=== PATIENT | female | born 1965 | race Two or more races ===

== ENCOUNTER 2021-03-27 11:09 | Outpatient (REF) | payer MEDICAID, SELFPAY ==
--- NOTE | ~2021-03-27 | US_ITS ---
EXAMINATION: US RETROPERITONEAL LIMITED (RENAL ONLY) CLINICAL INFORMATION: Renal cyst. COMPARISON: Ultrasound abdomen 06/27/2019. Ultrasound renal 06/13/2019. TECHNIQUE: Real-time imaging of the kidneys. FINDINGS: RIGHT KIDNEY: 8.3 x 3.2 x 5.4 cm (SAG x AP x TRV). The kidney is normal in size, contour, and echogenicity. Renal cortical thickness is normal. There are 2 simple cysts in the upper pole measuring 1 x 0.6 x 0.9 cm 2.7 x 1.7 x 2.2 cm. There are slightly increased in size from most recent exam measuring 7 x 4 x 6 mm and 1.5 x 1.2 x 1.4 cm June 2019. No renal calculi or hydronephrosis. LEFT KIDNEY: 8.9 x 3.7 x 3.9 cm (SAG x AP x TRV). The kidney is normal in size, contour, and echogenicity. Renal cortical thickness is normal. No calculi or focal parenchymal lesions. No hydronephrosis. The liver is echogenic. US/US renal BI IMPRESSION: 2 small simple right renal cysts slightly increased in size from most recent exam June 2019. Normal left kidney. .
== END 2021-03-27 11:10 | disposition home or self-care (01) ==
LOC: HO.US 11:09
PROVIDERS: Visit Provider Family Medicine
DX: N28.89 Other specified disorders of kidney and ureter (principal)
CPT/HCPCS: 76775

== ENCOUNTER 2021-04-11 10:48 | Outpatient (REF) | payer MEDICAID, SELFPAY ==
--- NOTE | ~2021-04-11 | MM_ITS ---
EXAMINATION: MM SCREENING DIGITAL BREAST TOMOSYNTHESIS, BILATERAL CLINICAL INFORMATION: Screening. Asymptomatic. The lifetime risk of breast cancer based on the Tyrer-Cuzick Model is 5%. COMPARISON: Mammography: 06/15/2018, 03/13/2017, 12/26/2015 TECHNIQUE: Digital breast tomosynthesis is performed in both the craniocaudal and mediolateral oblique views along with computer-aided detection (CAD). Synthesized 2D images are generated from the tomosynthesis. Additional right MLO view is provided. FINDINGS: The breasts are almost entirely fatty (ACR BI-RADS breast composition Category a). There are no significant masses, abnormal calcifications, or other abnormalities. Background stromal densities are stable. The skin contours are smooth. MM/MM tomosynthesis screening BI IMPRESSION: No mammographic evidence of malignancy. ASSESSMENT: BI-RADS 1: Negative RECOMMENDATION: Routine annual mammography screening. This patient's information was entered into a reminder system with a target due date for their next mammogram.
== END 2021-04-11 10:49 | disposition home or self-care (01) ==
LOC: HO.MAMMO 10:48
PROVIDERS: Visit Provider Family Medicine
DX: Z12.31 Encounter for screening mammogram for malignant neoplasm of breast (principal)
CPT/HCPCS: 77063; 77067

== ENCOUNTER 2021-08-08 11:46 | Emergency (ER) | payer MEDICAID, SELFPAY ==
--- NOTE | ~2021-08-08 | XR_ITS ---
EXAMINATION: XR CHEST CLINICAL INFORMATION: Chest pain COMPARISON: August 31, 2019 TECHNIQUE: AP portable view of the chest was obtained. FINDINGS: No significant abnormality is noted involving the heart, lungs, mediastinum, bony thorax or soft tissues. XR/XR chest 1V IMPRESSION: No acute disease.
--- NOTE | ~2021-08-08 | US_ITS ---
EXAMINATION: US VENOUS ULTRASOUND WITH DOPPLER LOWER EXTREMITY, RIGHT CLINICAL INFORMATION: Edema and pain. COMPARISON: Right lower extremity ultrasound dated from 08/31/2019. TECHNIQUE: Ultrasound of the deep veins is performed from the hip to the calf with compression sonography and color and pulse Doppler assessment. Spectral analysis with color-flow imaging is performed. FINDINGS: There is normal venous compression and respiratory variation and augmented flow. The visualized common femoral vein, superficial femoral vein, profunda femoral vein, popliteal vein, and the trifurcation region shows no evidence of deep venous thrombosis. There is no significant popliteal fossa cyst. If the patient's symptoms persist, followup ultrasound in 5 days 7 days might be of value to exclude proximal propagation from a non-visualized calf vein. US/US venous duplex LE RT IMPRESSION: No DVT demonstrated in the right lower extremity.
[2021-08-08 12:43] VITALS: BP 146/86; PULSE 84; RESP 16; TEMP 36.6; O2SAT 100; BMI 41.3
--- NOTE | 2021-08-08 12:48 | ECG_ITS ---
Test Reason : CHEST PAIN Blood Pressure : / mmHG Vent. Rate : 078 BPM Atrial Rate : 078 BPM P-R Int : 150 ms QRS Dur : 078 ms QT Int : 372 ms P-R-T Axes : 035 040 021 degrees QTc Int : 424 ms Normal sinus rhythm Normal ECG When compared with ECG of 31-AUG-2019 10:28, No significant change was found Referred By: Generic ED Physician Electronically Signed By:ZAC SUE MD
--- NOTE | 2021-08-08 16:33 | ED.GENADULT ---
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 Right lower extremities pain and swelling started about 3 days ago, symptoms are constant, no alleviating factor, no worsening Factor, associated with swelling in that leg, no similar presentation in the past. Patient also complaining of right-sided neck and right shoulder pain started 3 days ago, radiates down to the mid chest, pain is constant, worsening with moving of the right upper extremities, nothing relieving the pain, no other associated symptoms. Related Data Allergies Allergy/AdvReac Type Severity Reaction Status Date / Time octopus [OCTOPUS] Allergy Unknown UNKNOWN Verified 08/08/21 12:27 YUCCA Allergy Unknown UNKNOWN Uncoded 06/07/20 19:03 Review of Systems Review of Systems: All other systems are reviewed and are negative Constitutional: Reports as per HPI and Reports no additional constitutional complaints Eyes: Reports as per HPI and Reports no additional eye complaints Reports system reviewed and no additional complaints, except as documented Cardiovascular: Reports as per HPI and Reports no additional cardiovascular complaints Respiratory: Reports as per HPI and Reports no additional respiratory complaints Gastrointestinal: Reports as per HPI and Reports no additional gastrointestinal complaints Genitourinary: Reports no additional female genitourinary complaints Musculoskeletal: Reports no additional musculoskeletal complaints Skin/Breast: Reports system reviewed and no additional complaints, except as docu Psychiatric: Reports no additional psychiatric complaints Endocrine: Reports no additional endocrine complaints Hematologic/Lymphatic: Reports no additional hematologic/lymphatic complaints Allergic/Immunologic: Reports no additional allergic/immunologic complaints Reports system reviewed and no additional complaints, except as documented and Reports Abnormal speech present [facility] Past Medical History Medical History HTN (hypertension) Surgical History H/O partial resection of colon H/O ventral hernia repair History of carpal tunnel release History of section History of hysterectomy Social History Social History Alcohol intake: unknown Patient Tobacco Use Status: Current someday Tobacco user Use of substances other than those prescribed or required for medical reasons: Unknown Advance Directives: No Advance Directives Information Provided: No Physical Exam Vital Signs: Vital Signs: Last Vital Signs Temp 97.9 F 08/08/21 12:43 Pulse 84 08/08/21 12:43 Resp 16 08/08/21 12:43 BP 146/86 H 08/08/21 12:43 Pulse Ox 100 08/08/21 12:43 Body Mass Index 41.3 Vital signs have been reviewed as appeared to be correct. Blood pressure normal. Heart rate normal. Respiration rate normal. Temperature normal. Oxygen saturation normal. Appearance: Alert. Oriented X3. No acute distress. Head: Normal external exam. Normocephalic. Atraumatic. No [place] signs noted. No raccoon eyes noted Eyes: PERRLA. EOMI. Conjunctiva and sclera normal. Eyelids normal. ENT: TM's Normal. Pharynx normal. Uvula midline. Moist mucous membranes. No trismus noted. No drooling noted. No muffled voice noted. Neck: Normal inspection. Neck supple. FROM. No adenopathy. Thyroid Normal. No meningeal signs. No neck mass noted. CVS: Normal heart rate and rhythm. Heart sound normal. No murmurs noted. Pulses normal throughout. Respiratory: No respiratory distress. Painless inspiration. Breath sounds normal. No wheezes/rales/rhonchi noted. Chest nontender. No accessory muscle usage noted or decreased air movement noted. Abdomen: Soft and nontender. Bowel sounds normal in all 4 quadrants. No distention noted. No organomegaly noted. No visible injury noted. Back: No CVA tenderness. Full range of motion noted. Skin: Skin warm and dry. Normal skin color. Normal skin turgor. No rashes/lesions/lacerations noted. Extremities: No lower extremity edema. Extremities exhibit normal range of motion. Extremities nontender. Neuro: Oriented X 3. Cranial nerve exam: II-XII are grossly intact No motor deficit. No sensory deficit. Reflexes normal. Course Course Course Narrative: Assessment and plan. 56-year-old female came in with multiple complain, patient is known to have a history of fibromyalgia, patient is complaining of chest pain and lower extremities pain, felt that the patient's symptoms is mostly related to cervical radiculopathy radiating down to the right upper extremities and mid chest. Lower extremity swelling D-dimer/ultrasound showing no DVT. Reevaluation(s) Reevaluation #1: Patient is about to be discharged, patient walked out before receiving her discharge instruction. Time: 18:33 Medical Decision Making Medical Records Medical records reviewed: Yes I reviewed the patient's medical records. Lab Data Lab results reviewed: Yes I reviewed the patient's lab results. Result diagrams: 08/08/21 16:56 08/08/21 16:56 Labs: Lab Results 08/08/21 08/08/21 08/08/21 Range/Units 16:56 16:56 16:56 WBC 7.8 (4.8-10.8) X10*3/uL RBC 4.57 (4.20-5.50) X10*6/uL Hgb 12.8 (12.0-16.0) g/dl Hct 39.9 (37.0-47.0) % MCV 87.3 (80.0-98.0) fL MCH 28.0 (27.0-33.0) pg MCHC 32.1 (31.0-35.0) g/dl RDW 14.9 (11.0-16.0) % Plt Count 213 (160-400) X10*3/uL MPV 9.9 (9.4-12.3) fL Immature Gran % (Auto) 0.1 (0.0-0.4) % Neut % (Auto) 45.4 (45-73) % Lymph % (Auto) 46.3 H (20-40) % [place] % (Auto) 5.5 (2-11) % Eos % (Auto) 2.3 (0-4) % Baso % (Auto) 0.4 (0-2) % Lymph # (Auto) 3.6 (1.2-4.9) X10*3/uL [place] # (Auto) 0.4 (0.1-1.2) X10*3/uL Eos # (Auto) 0.2 (0.0-0.4) X10*3/uL Baso # (Auto) 0.0 (0.0-0.2) X10*3/uL Abs Immat Gran (auto) 0.01 (0.00-0.03) X10*3/uL Absolute Neuts (auto) 3.5 (2.0-8.3) x10*3/uL Absolute Nucleated RBC 0.000 (0.0-0.012) X10*3/uL Nucleated RBC % (auto) 0.0 (0.0-0.2) /100WBC D-Dimer High Sensitivty NG/ML Sodium 138 (135-145) mmol/L Potassium 4.2 (3.3-5.1) mmol/L Chloride 110 H (96-108) mmol/L Carbon Dioxide 19 L (22-29) mmol/L Anion Gap 13 (12-20) BUN 9 (9-16) mg/dL Creatinine 0.82 (0.5-1.4) mg/dL Estim Creat Clear Calc 72.2 Estimated GFR > 60 Random Glucose 113 (60-115) mg/dL Calcium 8.4 (8.4-10.2) mg/dL Total Bilirubin 0.3 (0.0-1.0) mg/dL Direct Bilirubin < 0.2 (0.0-0.5) mg/dL AST 25 (5-31) U/L ALT 24 (0-31) U/L Alkaline Phosphatase 104 (39-117) U/L Troponin I High Sens < 3.5 (<3.5-17.0) ng/L B-Natriuretic Peptide (<100) pg/mL Total Protein 6.8 (6.5-8.0) g/dL Albumin 3.7 (3.5-5.0) g/dL Lipase 36 (8-78) U/L 08/08/21 08/08/21 Range/Units 16:56 16:56 WBC (4.8-10.8) X10*3/uL RBC (4.20-5.50) X10*6/uL Hgb (12.0-16.0) g/dl Hct (37.0-47.0) % MCV (80.0-98.0) fL MCH (27.0-33.0) pg MCHC (31.0-35.0) g/dl RDW (11.0-16.0) % Plt Count (160-400) X10*3/uL MPV (9.4-12.3) fL Immature Gran % (Auto) (0.0-0.4) % Neut % (Auto) (45-73) % Lymph % (Auto) (20-40) % [place] % (Auto) (2-11) % Eos % (Auto) (0-4) % Baso % (Auto) (0-2) % Lymph # (Auto) (1.2-4.9) X10*3/uL [place] # (Auto) (0.1-1.2) X10*3/uL Eos # (Auto) (0.0-0.4) X10*3/uL Baso # (Auto) (0.0-0.2) X10*3/uL Abs Immat Gran (auto) (0.00-0.03) X10*3/uL Absolute Neuts (auto) (2.0-8.3) x10*3/uL Absolute Nucleated RBC (0.0-0.012) X10*3/uL Nucleated RBC % (auto) (0.0-0.2) /100WBC D-Dimer High Sensitivty 200 NG/ML Sodium (135-145) mmol/L Potassium (3.3-5.1) mmol/L Chloride (96-108) mmol/L Carbon Dioxide (22-29) mmol/L Anion Gap (12-20) BUN (9-16) mg/dL Creatinine (0.5-1.4) mg/dL Estim Creat Clear Calc Estimated GFR Random Glucose (60-115) mg/dL Calcium (8.4-10.2) mg/dL Total Bilirubin (0.0-1.0) mg/dL Direct Bilirubin (0.0-0.5) mg/dL AST (5-31) U/L ALT (0-31) U/L Alkaline Phosphatase (39-117) U/L Troponin I High Sens (<3.5-17.0) ng/L B-Natriuretic Peptide 25 (<100) pg/mL Total Protein (6.5-8.0) g/dL Albumin (3.5-5.0) g/dL Lipase (8-78) U/L Imaging Data Chest x-ray: Radiologist's impression: No acute disease Right lower extremities ultrasound: Radiologist's impression: No DVT ECG Data Attestation: I personally reviewed and interpreted this ECG as follows: Interpretation: Normal sinus rhythm at 70 beats per minutes, normal axis deviation, normal intervals, no ST-T changes. Discharge Plan Discharge Clinical Impression: Fibromyalgia, Cervical radiculopathy Patient Disposition: Home, Self-Care Instructions: Cervical Radiculopathy (ED), Fibromyalgia (ED) Referrals: Lilo Trent DO [Primary Care Provider] - 2 days
[2021-08-08 17:00] LABS: MANUAL DIFF FLAG NO
[2021-08-08 17:03] LABS: Basophils Percent Auto 0.4 % (0-2); Eosinophils Absolute Auto 0.2 X10*3/uL (0.0-0.4); Eosinophils Percent Auto 2.3 % (0-4); Hematocrit 39.9 % (37.0-47.0); Hemoglobin 12.8 g/dl (12.0-16.0); Imm Gran Abs Auto 0.01 X10*3/uL (0.00-0.03); Imm Gran Pct Auto 0.1 % (0.0-0.4); Lymphocytes Absolute Auto 3.6 X10*3/uL (1.2-4.9); Lymphocytes Percent Auto 46.3 % (20-40); Mean Corpuscular HGB Conc 32.1 g/dl (31.0-35.0); Mean Corpuscular Volume 87.3 fL (80.0-98.0); Mean Platelet Volume 9.9 fL (9.4-12.3); Monocytes Absolute Auto 0.4 X10*3/uL (0.1-1.2); Monocytes Percent Auto 5.5 % (2-11); Neutrophils Absolute Auto 3.5 x10*3/uL (2.0-8.3); Neutrophils Percent Auto 45.4 % (45-73); Platelet Count 213 X10*3/uL (160-400); Red Blood Count 4.57 X10*6/uL (4.20-5.50); Red Cell Distribution Width 14.9 % (11.0-16.0); White Blood Count 7.8 X10*3/uL (4.8-10.8)
[2021-08-08 17:09] LABS: D Dimer High Sensitivity 200 NG/ML
[2021-08-08 17:29] LABS: Troponin-I High Sensitivity < 3.5 ng/L (<3.5-17.0)
[2021-08-08 17:30] LABS: Alanine Aminotransferase 24 U/L (0-31); Albumin Level 3.7 g/dL (3.5-5.0); Alkaline Phosphatase 104 U/L (39-117); Anion Gap 13 (12-20); Aspartate Amino Transferase 25 U/L (5-31); B Type Natriuretic Peptide 25 pg/mL (<100); Bilirubin Direct < 0.2 mg/dL (0.0-0.5); Bilirubin Total 0.3 mg/dL (0.0-1.0); Blood Urea Nitrogen 9 mg/dL (9-16); Calcium 8.4 mg/dL (8.4-10.2); Carbon Dioxide 19 mmol/L (22-29); Chloride 110 mmol/L (96-108); Creatinine Clr Calc Pharmacy 72.2; Estimated Glomerular Filt Rate > 60; Glucose Random 113 mg/dL (60-115); Lipase 36 U/L (8-78); Potassium 4.2 mmol/L (3.3-5.1); Sodium 138 mmol/L (135-145); Total Protein 6.8 g/dL (6.5-8.0)
[2021-08-08 18:13] LABS: Appearance Urine CLEAR; Color Urine YELLOW; Glucose Urine UA NEG (NEG); Leukocyte Esterase Urine NEG (NEG); Nitrite Urine NEG (NEG); Specific Gravity - Urine >= 1.030 (1.005-1.025); UACC Culture Trigger NO; Urine Blood TRACE (NEG); Urine Ketones NEG (NEG); Urine Protein NEG (NEG-TRACE)
[2021-08-08 18:23] VITALS: BP 140/80; PULSE 78; RESP 15; TEMP 36.8; O2SAT 97
--- NOTE | 2021-08-08 18:34 | PC.NURSE ---
Spoke to MD about the dispo on this patient which is ultimately to medicate for pain and discharge. However, prior to this,patient requested to leave. IV removed and pt left watching.
[2021-08-08 18:44] LABS: Bacteria Urine 1+ /LPF; Hyaline Casts Urine 0-2 /LPF; RBC Urine 0-2 /HPF (0); Squamous Epithelial Cell Urine 1+ /LPF; WBC Urine 0-2 /HPF (0-4)
== END 2021-08-08 18:38 | disposition home or self-care (01) ==
PROVIDERS: Emergency Provider Emergency Medicine; PCP Family Medicine
DX: M79.7 Fibromyalgia (principal); M54.12 Radiculopathy, cervical region; M79.662 Pain in left lower leg; M79.661 Pain in right lower leg; M79.89 Other specified soft tissue disorders; I10 Essential (primary) hypertension; E78.00 Pure hypercholesterolemia, unspecified; F17.200 Nicotine dependence, unspecified, uncomplicated
CPT/HCPCS: 36415; 71045; 80048; 80076; 81001; 83690; 83880; 84484; 85025; 85379; 93005; 93971; 99284

== ENCOUNTER 2022-01-29 15:12 | Outpatient (REF) | payer MEDICAID, SELFPAY ==
--- NOTE | ~2022-01-29 | XR_ITS ---
EXAMINATION: XR FEMUR, LEFT XR KNEE, LEFT XR TIBIA, LEFT CLINICAL INFORMATION: Pain COMPARISON: None TECHNIQUE: AP and lateral views of the left femur, 3 views of the left knee, and AP and lateral views of the left tibia and fibula. FINDINGS: AP and lateral views of the left femur do not demonstrate any evidence of acute fracture or dislocation. Hip joint space appears maintained. There is some spurring about the greater trochanter. No destructive bony lesion identified. Three views of the left knee do not demonstrate any evidence of acute fracture or dislocation. Joint spaces are maintained. Small spur site of insertion of the quadriceps tendon on the patella is seen. No left knee effusion is seen. AP and lateral views of the left tibia and fibula do not demonstrate any evidence of acute fracture or dislocation. No destructive bony lesion identified. There is an Achilles calcaneal spur present. XR/XR knee LT 3V IMPRESSION: No evidence of significant bony abnormality of the left femur, left knee, or left tibia and fibula.
--- NOTE | ~2022-01-29 | XR_ITS ---
EXAMINATION: XR FEMUR, LEFT XR KNEE, LEFT XR TIBIA, LEFT CLINICAL INFORMATION: Pain COMPARISON: None TECHNIQUE: AP and lateral views of the left femur, 3 views of the left knee, and AP and lateral views of the left tibia and fibula. FINDINGS: AP and lateral views of the left femur do not demonstrate any evidence of acute fracture or dislocation. Hip joint space appears maintained. There is some spurring about the greater trochanter. No destructive bony lesion identified. Three views of the left knee do not demonstrate any evidence of acute fracture or dislocation. Joint spaces are maintained. Small spur site of insertion of the quadriceps tendon on the patella is seen. No left knee effusion is seen. AP and lateral views of the left tibia and fibula do not demonstrate any evidence of acute fracture or dislocation. No destructive bony lesion identified. There is an Achilles calcaneal spur present. XR/XR femur LT 1V IMPRESSION: No evidence of significant bony abnormality of the left femur, left knee, or left tibia and fibula.
--- NOTE | ~2022-01-29 | XR_ITS ---
EXAMINATION: XR FEMUR, LEFT XR KNEE, LEFT XR TIBIA, LEFT CLINICAL INFORMATION: Pain COMPARISON: None TECHNIQUE: AP and lateral views of the left femur, 3 views of the left knee, and AP and lateral views of the left tibia and fibula. FINDINGS: AP and lateral views of the left femur do not demonstrate any evidence of acute fracture or dislocation. Hip joint space appears maintained. There is some spurring about the greater trochanter. No destructive bony lesion identified. Three views of the left knee do not demonstrate any evidence of acute fracture or dislocation. Joint spaces are maintained. Small spur site of insertion of the quadriceps tendon on the patella is seen. No left knee effusion is seen. AP and lateral views of the left tibia and fibula do not demonstrate any evidence of acute fracture or dislocation. No destructive bony lesion identified. There is an Achilles calcaneal spur present. XR/XR tibia fibula LT 2V IMPRESSION: No evidence of significant bony abnormality of the left femur, left knee, or left tibia and fibula.
--- NOTE | ~2022-01-29 | US_ITS ---
EXAMINATION: US VENOUS ULTRASOUND WITH DOPPLER LOWER EXTREMITY, BILATERAL CLINICAL INFORMATION: Bilateral pain and swelling COMPARISON: August 08, 2021 and August 31, 2019 TECHNIQUE: Ultrasound of the deep veins is performed from the hip to the calf with compression sonography and color and pulse Doppler assessment. Spectral analysis with color-flow imaging is performed. FINDINGS: RIGHT: There is normal venous compression and respiratory variation and augmented flow. The visualized common femoral vein, superficial femoral vein, profunda femoral vein, popliteal vein, and the trifurcation region shows no evidence of deep venous thrombosis. There is no significant popliteal fossa cyst. No popliteal artery aneurysm. LEFT: There is normal venous compression and respiratory variation and augmented flow. The visualized common femoral vein, superficial femoral vein, profunda femoral vein, popliteal vein, and the trifurcation region shows no evidence of deep venous thrombosis. There is no significant popliteal fossa cyst. No popliteal artery aneurysm. US/US venous duplex LE BI IMPRESSION: No acute DVT demonstrated in the bilateral lower extremity.
== END 2022-01-29 15:13 | disposition home or self-care (01) ==
LOC: HO.US 15:12
PROVIDERS: PCP Family Medicine; Visit Provider Family Medicine
DX: M79.604 Pain in right leg (principal); M79.605 Pain in left leg; M25.562 Pain in left knee
CPT/HCPCS: 73551; 73562; 73590; 93970

== ENCOUNTER 2023-12-22 10:57 | Outpatient (REF) | payer MEDICAID, SELFPAY ==
--- NOTE | ~2023-12-22 | XR_ITS ---
EXAMINATION: XR CLAVICLE, RIGHT XR SHOULDER, RIGHT XR HUMERUS, RIGHT CLINICAL INFORMATION: Pain status post fall COMPARISON: None available. TECHNIQUE: 2 views of the right clavicle 4 views of the right shoulder 3 views the right humerus FINDINGS: No acute visible fracture or dislocation. Degenerative arthropathy of the glenohumeral and acromioclavicular joints with joint space alignment otherwise maintained. Soft tissues are unremarkable. Visualized portions of the chest are unremarkable. XR/XR humerus RT IMPRESSION: 1. No acute visible fracture or dislocation. 2. Degenerative arthropathy of the glenohumeral and acromioclavicular joints.
--- NOTE | ~2023-12-22 | XR_ITS ---
EXAMINATION: XR HIP, RIGHT CLINICAL INFORMATION: Pain COMPARISON: None available. TECHNIQUE: Two views of the right hip. FINDINGS: Acute visible fracture dislocation. Mild arthritic changes of the right femoral acetabular joint. Joint space alignment otherwise maintained. Soft tissues are unremarkable. Pelvic phleboliths are noted. XR/XR hip RT min 2V IMPRESSION: 1. No acute visible fracture dislocation. 2. Mild arthritic changes of the right femoral acetabular joint.
--- NOTE | ~2023-12-22 | XR_ITS ---
EXAMINATION: XR KNEE, RIGHT CLINICAL INFORMATION: Injury COMPARISON: None available. TECHNIQUE: Four views of the right knee. FINDINGS: No acute visible fracture dislocation. Mild multicompartment arthritic changes. Mild narrowing medial femorotibial compartment. Joint space alignment are otherwise maintained. No large knee joint effusion. Soft tissues are unremarkable. XR/XR knee RT 4V IMPRESSION: 1. No acute visible fracture dislocation. 2. Mild multicompartment arthritic changes.
--- NOTE | ~2023-12-22 | XR_ITS ---
EXAMINATION: XR RIBS, LEFT CLINICAL INFORMATION: Injury COMPARISON: Chest radiograph from 08/08/2021 TECHNIQUE: 4 views of the left ribs were obtained. FINDINGS: Chronic interstitial lung markings. Biapical pleural parenchymal lung scarring. No pneumothorax. Trachea is midline. Cardiac mediastinal silhouette is stable. No large pleural effusion. Soft tissues are unremarkable. Degenerative changes of the thoracolumbar spine. No acute visualized left-sided rib fractures. XR/XR ribs LT min 3V w CXR1V IMPRESSION: 1. Chronic interstitial lung markings. 2. Biapical pleural parenchymal lung scarring. 3. No acute visualized left-sided rib fractures.
--- NOTE | ~2023-12-22 | XR_ITS ---
EXAMINATION: XR CLAVICLE, RIGHT XR SHOULDER, RIGHT XR HUMERUS, RIGHT CLINICAL INFORMATION: Pain status post fall COMPARISON: None available. TECHNIQUE: 2 views of the right clavicle 4 views of the right shoulder 3 views the right humerus FINDINGS: No acute visible fracture or dislocation. Degenerative arthropathy of the glenohumeral and acromioclavicular joints with joint space alignment otherwise maintained. Soft tissues are unremarkable. Visualized portions of the chest are unremarkable. XR/XR shoulder RT min 2V IMPRESSION: 1. No acute visible fracture or dislocation. 2. Degenerative arthropathy of the glenohumeral and acromioclavicular joints.
--- NOTE | ~2023-12-22 | XR_ITS ---
EXAMINATION: XR CLAVICLE, RIGHT XR SHOULDER, RIGHT XR HUMERUS, RIGHT CLINICAL INFORMATION: Pain status post fall COMPARISON: None available. TECHNIQUE: 2 views of the right clavicle 4 views of the right shoulder 3 views the right humerus FINDINGS: No acute visible fracture or dislocation. Degenerative arthropathy of the glenohumeral and acromioclavicular joints with joint space alignment otherwise maintained. Soft tissues are unremarkable. Visualized portions of the chest are unremarkable. XR/XR clavicle RT IMPRESSION: 1. No acute visible fracture or dislocation. 2. Degenerative arthropathy of the glenohumeral and acromioclavicular joints.
== END 2023-12-22 10:58 | disposition home or self-care (01) ==
LOC: HO.HHCX 10:57
PROVIDERS: Visit Provider Internal Medicine
DX: R07.81 Pleurodynia (principal); M79.601 Pain in right arm; M25.511 Pain in right shoulder; M25.561 Pain in right knee; M25.551 Pain in right hip
CPT/HCPCS: 71101; 73000; 73030; 73060; 73502; 73564

== ENCOUNTER 2024-03-15 11:38 | Outpatient (REF) | payer MEDICAID, SELFPAY | END 2024-03-15 11:39 | disposition home or self-care (01) | LOC: HO.MAMMO 11:38 | PROVIDERS: PCP Family Medicine; Visit Provider Family Medicine | DX: Z12.31 Encounter for screening mammogram for malignant neoplasm of breast (principal) | CPT/HCPCS: 77063; 77067 ==

== ENCOUNTER → 2024-03-15 12:45 | Outpatient (BNV) | payer MEDICAID, SELFPAY | PROVIDERS: PCP Family Medicine; Visit Provider Radiology Diagnostic Radiology | DX: Z12.31 Encounter for screening mammogram for malignant neoplasm of breast (principal) | CPT/HCPCS: 77063; 77067 ==

== ENCOUNTER 2025-05-05 12:15 | Outpatient (REF) | payer MEDICAID, SELFPAY ==
--- NOTE | ~2025-05-05 | XR_ITS ---
EXAMINATION: XR LUMBOSACRAL SPINE CLINICAL INFORMATION: worsening neck and back pain s/p fall COMPARISON: August 11, 2016. TECHNIQUE: AP and lateral views FINDINGS: Small marginal osteophyte formation and mild endplate sclerosis at the vertebral bodies of the lumbar spine. Larger marginal osteophyte formation and endplate sclerosis and the lower thoracic spine. No acute cortical disruption or malalignment. No lytic or blastic lesions. Metallic coils overlapping the lumbar spine and lower pelvis likely from mesh procedure. Vascular desiccation's, aorta. Vascular clips in the right upper quadrant abdomen and sutures in the right hemiabdomen. XR/XR lumbar spine 2-3V IMPRESSION: Multilevel thoracolumbar spondylosis without acute fracture or listhesis. Overall worsening in the lower thoracic spine. Electronically signed by: Avi Solis MD 05/05/2025 01:29 PM EDT
--- NOTE | ~2025-05-05 | XR_ITS ---
EXAMINATION: XR CERVICAL SPINE CLINICAL INFORMATION: PAIN COMPARISON: Correlated to MRI dated October 09, 2017. TECHNIQUE: AP lateral and atlantoodontoid views. FINDINGS: Craniocervical junction is intact. Small marginal osteophyte formation C5-6 and C6-7 levels. No acute cortical disruption or malalignment. No lytic or blastic lesions. Upper airway is patent. Edentulous. XR/XR cervical spine 3V IMPRESSION: Mild spondylosis C5-6 and C6-7. Electronically signed by: Avi Solis MD 05/05/2025 01:28 PM EDT
--- NOTE | ~2025-05-05 | XR_ITS ---
EXAMINATION: XR THORACIC SPINE CLINICAL INFORMATION: PAIN COMPARISON: September 19, 2016 TECHNIQUE: AP and lateral views. FINDINGS: S-shaped curvature of the thoracic spine with a levoconvex curvature apex at T5. Multilevel marginal osteophyte formation and syndesmophyte formation with endplate sclerosis and decreased intervertebral disc height. No acute cortical disruption or malalignment. Metallic coils likely from a mesh procedure in the abdomen. XR/XR thoracic spine 2V IMPRESSION: Multilevel spondylosis and levoconvex scoliosis of the upper thoracic spine. Overall worsening since prior exam. Electronically signed by: Avi Solis MD 05/05/2025 01:27 PM EDT
--- NOTE | ~2025-05-05 | XR_ITS ---
EXAMINATION: XR KNEE 4 OR MORE VIEWS LEFT HISTORY: worsening knee pain and swelling s/p fall COMPARISON: Comparison is made with the prior examination dated 01/29/2022. FINDINGS: Five views of the left knee are submitted. Osseous mineralization is normal. There is no fracture or dislocation. The joint spaces are preserved. The soft tissues are unremarkable. There is no joint effusion. XR/XR knee LT 4V IMPRESSION: Unremarkable examination of the left knee. Electronically signed by: Anibal Brasher MD 05/05/2025 01:25 PM EDT
--- OUTSIDE RECORDS SUMMARY | 2025-05-05 12:17 | XMS_ITS | Encounter Summary ---
Author Organization [employer] Address [address] [place] [address] Care Team Providers Care Aquatic Centre Manager Name Role Phone Lucy Trentfer Primary Care Provider + [phone] Reason for Visit * Reason Comments Med Refill Encounter Details Date Type Department Care Team ([facility] st Contact Info) Description 09/12/2024 Refill [facility] [address] [place], [place] [phone] Monique Ng MD [address] [place] [address] Major depression, recurrent, chronic (CMS/HCC) Social History Tobacco Use Types Packs/Day Years Used Date Smoking Tobacco: Every Day Cigarettes Passive Smoke Exposure: Current Housing Stability Answer Date Recorded What is your housing situation today? I have teriwilly henning 12/29/[address] you li ve. Do you have problems with any of the following? None of the above 12/29/2023 Food Insecurity Answer Date Recorded Within the past 12 months, y ou worried that your food would run out before you got money to buy more: Sometimes True 2023 Within the past 12 months,th e food you bought just didn't last and you didn't have enough money to get more: Sometimes True 12/29/2023 Transportation Answer Date Recorded In the past 12 months, has l ack of transportation kept you from medical appts, meetings, work or from getting things needed for daily living? Yes, it has kept me from non-medical meetings, work, or getting things that I need 12/29/2023 Utilities Answer Date Recorded In the past 12 months, has t he electric, gas, oil or water company threatened to shut off services in your home? No 12/29/2023 Comments Unknown Sex and Gender Information Value Date Recorded Sex Assigned at Female 07/21/2022 10:29 AM EDT Legal Sex Female 10:29 AM EDT Gender Identity Female 07/21/2022 10:29 AM EDT Sexual Orientation Straight 07/21/2022 10 :29 AM EDT documented as of this encounter Plan of Treatment Not on file documented as of this encounter Visit Diagnoses Diagnosis Major depression, recurrent, chronic (CMS/HCC) documented in this encounter Care Teams Aquatic Centre Manager Relationship Specialty Start Date End Date Lilo Trent DO [address] [place] [id number] PCP - General Family Medicine 12/18/15 documented as of this encounter
[2025-05-05 13:47] LABS: Hematocrit 39.9 % (37.0-47.0); Hemoglobin 12.8 g/dl (12.0-16.0); Mean Corpuscular HGB Conc 32.1 g/dl (31.0-35.0); Mean Corpuscular Hemoglobin 28.5 pg (27.0-33.0); Mean Corpuscular Volume 88.9 fL (80.0-98.0); NRBC Abs Auto 0.000 X10*3/uL (0.0-0.012); NRBC Pct Auto 0.0 /100WBC (0.0-0.2); Platelet Count 229 X10*3/uL (160-400); Red Blood Count 4.49 X10*6/uL (4.20-5.50); White Blood Count 7.9 X10*3/uL (4.8-10.8)
[2025-05-05 13:52] LABS: Hemoglobin A1C 125.4726 umol/L; Total Hemoglobin (HGBA1C) 3337.7711 umol/L
[2025-05-05 13:55] LABS: Alanine Aminotransferase 24 U/L (0-31); Albumin Level 4.0 g/dL (3.5-5.0); Alkaline Phosphatase 107 U/L (39-117); Anion Gap 12 (12-20); Aspartate Amino Transferase 30 U/L (5-31); Blood Urea Nitrogen 12 mg/dL (9-16); Calcium 8.9 mg/dL (8.4-10.2); Carbon Dioxide 28 mmol/L (22-29); Chloride 107 mmol/L (96-108); Cholesterol 119 mg/dL (<200); Estimated Glomerular Filt Rate > 60; HDL Cholesterol 48 mg/dL (>40); Potassium 3.5 mmol/L (3.3-5.1); Sodium 143 mmol/L (135-145); Total Protein 7.0 g/dL (6.5-8.0); Triglycerides 78 mg/dL (<150)
[2025-05-05 14:10] LABS: HBS Num1 2.00 mIU/mL (0-7.99); HBc Num1 0.04 S/CO (0.00-0.79); HBsAGNum1 0.47 S/CO (0.00-0.99); HIV Num 1 0.04 S/CO (0.00-0.99); Hepatitis B Surface Antigen Negative (Negative); ~HepC Num1 0.07 S/CO (0.00-0.79); ~Hepatitis B Surface Antibody NONREACTIVE (Nonreactive); ~Hepatitis C Antibody Nonreactive (Nonreactive)
[2025-05-05 14:13] LABS: ~Hepatitis A Antibody IgG 0.27 S/CO (0.00-0.99)
[2025-05-05 14:14] LABS: Free T4 (Free Thyroxine) 1.07 ng/dL (0.71-1.85); Thyroid Stimulating Hormone 1.10 uIU/mL (0.32-4.0)
[2025-05-05 14:36] LABS: Microalbum/Creatinine Ratio Ur 7.6 ug/mg cr (<30)
== END 2025-05-05 12:16 | disposition home or self-care (01) ==
LOC: HO.HHCX 12:15
PROVIDERS: PCP Family Medicine; Visit Provider Family Medicine
DX: Z11.3 Encounter for screening for infections with a predominantly sexual mode of transmission (principal); Z11.59 Encounter for screening for other viral diseases; Z11.4 Encounter for screening for human immunodeficiency virus [HIV]; K76.0 Fatty (change of) liver, not elsewhere classified; G89.29 Other chronic pain; M54.2 Cervicalgia; M54.9 Dorsalgia, unspecified; M25.562 Pain in left knee; I10 Essential (primary) hypertension; M25.462 Effusion, left knee
CPT/HCPCS: 36415; 72040; 72070; 72100; 73564; 80048; 80061; 80076; 82043; 82105; 82306; 82570; 83036; 84439; 84443; 85027; 86592; 86704; 86706; 86708; 86803; 87340; 87389

== ENCOUNTER → 2025-05-05 12:42 | Outpatient (BNV) | payer MEDICAID, SELFPAY | PROVIDERS: PCP Family Medicine; Visit Provider Radiology Diagnostic Radiology | DX: M25.562 Pain in left knee (principal); M47.816 Spondylosis without myelopathy or radiculopathy, lumbar region; M50.122 Cervical disc disorder at C5-C6 level with radiculopathy; M47.892 Other spondylosis, cervical region | CPT/HCPCS: 72040; 72070; 72100; 73564 ==

== ENCOUNTER 2025-07-24 16:33 | Emergency (ER) | payer MEDICAID, SELFPAY ==
--- NOTE | ~2025-07-24 | CT_ITS ---
CLINICAL HISTORY: trauma , pain right mid back to lumbar --- Additional Notes or Special Instructions: Patient very poor historian also complaining of right upper CT abdomen and pelvis without contrast Comparison: None provided Findings: No acute finding in the partially imaged lung bases. No intraperitoneal free fluid or free air. Normal stomach and small bowel. No significant abnormality of the colon. Ventral abdominal wall mesh hernia repair changes. Sigmoid and cecal anastomotic sutures noted. Small gallstone. Otherwise normal gallbladder, bile ducts, liver, spleen, pancreas, and adrenal gland in the absence of IV contrast. Right renal 3 cm simple cyst. Otherwise normal kidneys, ureters, and urinary bladder. No aortic aneurysm. Bones intact. No acute fracture or suspicious bone lesion. Mild lower lumbar spine and hip degenerative changes. IMPRESSION: No acute traumatic finding. [id number] colonic fecal loading with distended proximal transverse colon and hepatic flexure colon. This could potentially be a cause of acute right upper quadrant abdominal pain and may be a source of referred back pain as well. This document has been electronically signed by: Wade Knapp MD on 07/24/2025 22:57:08
--- OUTSIDE RECORDS SUMMARY | 2025-07-24 15:40 | XMS_ITS | Encounter Summary ---
Author Organization [employer] Address [address] [place] [address] Care Team Providers Care Choral Director Name Role Phone Twan Lilo Primary Care Provider [phone] Encounter Details Date Type Department Care Team ([facility] st Contact Info) Description 07/24/2025 3:40 PM EST Office Visit [facility] [address], [place] [id number] Monique Ng MD [address], [place] [phone] Pain of upper abdomen (Primary Dx) Social History Tobacco Use Types Packs/Day Years Used Date Smoking Tobacco: Every Day Cigarettes Passive Smoke Exposure: Current Alcohol Use Standard Drinks/Week Comments Defer 0 (1 standard drink = 0.6 oz pur e alcohol) Depression Answer Date Recorded Patient Health Questionnaire-9 Score 16 05/05/2025 Patient Health Questionnaire-9 Score 16 05/05/2025 Last PHQ-9: Questionnaire Data Not on file 0 05/05/2025 Housing Stability Answer Date Recorded What is your housing situation today? I have teri henning 05/05/[address] you li ve. Do you have problems with any of the following? None of the above 05/05/2025 Food Insecurity Answer Date Recorded Within the past 12 months, y ou worried that your food would run out before you got money to buy more: Often true 05/05/2025 Within the past 12 months,th e food you bought just didn't last and you didn't have enough money to get more: Often true Transportation Answer Date Recorded In the past 12 months, has l ack of transportation kept you from medical appts, meetings, work or from getting things needed for daily living? Yes, it has kept me from medical appointments or getting medications. 05/05/2025 Utilities Answer Date Recorded In the past 12 months, has t he electric, gas, oil or water company threatened to shut off services in your home? No 05/05/2025 Depression Answer Date Recorded Patient Health Questionnaire-2 Score 4 05/05/2025 Internet Access Answer Date Recorded Internet Access Q1 Yes 05/05/2025 Internet Access Q2 Not on file 05/05/2025 Comments No Sex and Gender Information Value Date Recorded Sex Assigned at Female 07/21/2022 10:29 AM EDT Legal Sex Female 10:29 AM EDT Gender Identity Female 07/21/2022 10:29 AM EDT Sexual Orientation Straight 07/21/2022 10 :29 AM EDT documented as of this encounter Last Filed Vital Signs Vital Sign Reading Time Taken Comments Blood Pressure 144/82 07/24/2025 3:42 PM EST Pulse 92 07/24/2025 3:42 PM EST Temperature 36.6 C (97.8 F) 07/24/2025 3:42 PM EST Respiratory Rate 20 07/24/2025 3:42 PM EST Oxygen Saturation - - Inhaled Oxygen Concentration - - Weight 83.8 kg (184 lb 12.8 oz) 07/24/2025 3:42 PM EST Height 147.3 cm (4' 10 ) 07/24/2025 3:42 PM EST Body Mass Index 38.62 07/24/2025 3:42 PM EST documented in this encounter Progress Notes * Monique Ng MD - 07/24/2025 3:40 PM EST SUBJECTIVE: Zoë Cook is a 60 y.o. year old female who presents for [facility]/abdominal pain. Denies recent illness, injury, or hospitalization. Patient is here with Terrell, her BF. Acute Concerns: Low Back Pain and Sciatica Patient developed pain nn the back radiating to the legs and right flank 3d ago. Described pain as discomfort extending forward and to the sides as well as right leg Applied heat for relief with no improvement of sxs. No urinary sxs, cosntipation, fever or diarrhea Social History Social History Narrative Not on file Problem List[1] Family History[2] Review of Systems Constitutional: Negative for chills, fatigue and fever. HENT: Negative for congestion, ear pain, nosebleeds, rhinorrhea, sinus pressure, sore throat and trouble swallowing. Eyes: Negative for pain and discharge. Respiratory: Negative for cough, chest tightness and shortness of breath. Cardiovascular: Negative for chest pain, palpitations and leg swelling. Gastrointestinal: Positive for abdominal pain. Negative for blood in stool, constipation, diarrhea and nausea. Endocrine: Negative for polydipsia and polyuria. Genitourinary: Negative for dysuria, frequency, genital sores, pelvic pain and vaginal discharge. Musculoskeletal: Negative for back pain and neck pain. Skin: Negative for rash. Allergic/Immunologic: Negative for environmental allergies. Neurological: Negative for dizziness, seizures, weakness, light-headedness and headaches. Hematological: Negative for adenopathy. Psychiatric/Behavioral: Negative for agitation, behavioral problems, self-injury and suicidal ideas. OBJECTIVE: Vitals: 07/24/25 1542 BP: (!) 144/82 Pulse: 92 Resp: 20 Temp: 97.8 ??F (36.6 ??C) Physical Exam HENT: Right Ear: Tympanic membrane and ear canal normal. Left Ear: Tympanic membrane and ear canal normal. Mouth/Throat: Mouth: Mucous membranes are moist. Pharynx: No oropharyngeal exudate or posterior oropharyngeal erythema. Eyes: Pupils: Pupils are equal, round, and reactive to light. Cardiovascular: Rate and Rhythm: Regular rhythm. Pulses: Normal pulses. Heart sounds: Normal heart sounds. No murmur heard. Pulmonary: Breath sounds: Normal breath sounds. Abdominal: General: Bowel sounds are normal. Palpations: Abdomen is soft. Tenderness: There is abdominal tenderness (3+) in the right upper quadrant and periumbilical area. There is right CVA tenderness, guarding and rebound. Comments: Right flank and mid abd Musculoskeletal: General: Normal range of motion. Cervical back: Neck supple. Skin: General: Skin is warm. Neurological: General: No focal deficit present. Mental Status: She is alert and oriented to person, place, and time. Psychiatric: Mood and Affect: Mood normal. Behavior: Behavior normal. Problem List Items Addressed This Visit Pain of upper abdomen - Primary - Low back pain with radiation to the legs, possible sciatica discussed. However given significant abdominal pain., I referred her to ED to ro urolithiasis/renal colic - Sent in an Uber for transportation to emergency services given that she's hemodynamically stable,willing to go to [facility] ED but came in public transportation. - KAL millan PCP This note was drafted using Ambient (AI) technology. The patient/patient's guardian has been informed and has consented to the use of this technology: Yes Follow Up: Medications Ordered Prior to Encounter[3] [1] Patient Active Problem List Diagnosis Anxiety Essential hypertension Chronic gastroesophageal reflux disease Mild intermittent asthma Obesity Major depression, recurrent, chronic (CMS/HCC) Vitamin D deficiency Vitamin B12 deficiency Fibromyalgia Fatty liver Chronic diarrhea Allergic rhinitis Renal cyst Hyperlipidemia Chronic low back pain Post traumatic stress disorder Acute pain of right shoulder Pain of right upper extremity Pain of right hip Rib pain Chronic pain of both knees Healthcare maintenance Complete edentulism Atrophic maxilla Pain of upper abdomen [2] No family history on file. [3] Current Outpatient Medications on File Prior to Visit Medication Sig Dispense Refill Acetaminophen Extra Strength 500 MG tablet TAKE 1 TABLET BY MOUTH EVERY 6 HOURS NEEDED FOR PAIN OR FEVER 100 tablet 2 amLODIPine (Norvasc) 5 MG tablet Take 1 tablet (5 mg) by mouth at bedtime. 90 tablet 1 Arnuity Ellipta 50 MCG/ACT inhaler INHALE 1 PUFF BY MOUTH EVERY DAY AT THE SAME TIME RINSE MOUTH AFTER USING 30 each 5 Aspirin Low Dose 81 MG EC tablet TAKE 1 TABLET BY MOUTH AT BEDTIME 90 tablet 1 atorvastatin (Lipitor) 10 MG tablet TAKE 1 TABLET BY MOUTH AT BEDTIME 90 tablet 1 atorvastatin (Lipitor) 10 MG tablet Take 1 tablet (10 mg) by mouth at bedtime. 90 tablet 1 baclofen (Lioresal) 10 MG tablet TAKE 1 TABLET BY MOUTH THREE TIMES DAILY IN THE MORNING, AT NOON, AND AT BEDTIME NEEDED FOR MUSCLE SPASMS 60 tablet 3 buPROPion XL (Wellbutrin XL) 300 MG 24 hr tablet TAKE 1 TABLET BY MOUTH EVERY MORNING DO NOT BREAK,CRUSH, DISSOLVE OR CHEW 30 tablet 5 cholecalciferol (D3 Super Strength) 50 MCG (2000 UT) capsule Take 1 capsule (50 mcg) by mouth in the morning. 90 capsule 1 cholestyramine light (Prevalite) 4 g packet MIX 1 PACKET WITH 2 TO 6 OUNCES OF WATER TWICE DAILY 180 packet 1 cyanocobalamin (Vitamin B-12) 1000 MCG tablet Take 1 tablet (1,000 mcg) by mouth in the morning. 90tablet 1 Diclofenac Sodium 1 % gel Apply 2 g topically if needed in the morning, at noon, in the evening, and at bedtime (pain). 150 g 0 fluticasone (Flonase) 50 MCG/ACT nasal spray USE 2 SPRAYS IN EACH NOSTRIL ONCE DAILY 48 g 1 gabapentin (Neurontin) 300 MG capsule Take 1 capsule (300 mg) by mouth 3 times daily. 90 capsule 3 lidocaine (Lidoderm) 5 % patch APPLY 2 PATCHES TOPICALLY TO SKIN, LEAVE ON FOR 12 HOURS AND OFF FOR12 HOURS DIRECTED 60 patch 5 loratadine (Claritin) 10 MG tablet TAKE 1 TABLET BY MOUTH EVERY DAY 90 tablet 1 melatonin 5 MG tablet TAKE 2 TABLETS BY MOUTH EVERY DAY AT BEDTIME 60 tablet 5 omeprazole (PriLOSEC) [address] capsule Take 1 capsule (20 mg) by mouth before breakfast and before evening meal. Do not crush or chew. 180 capsule 1 sertraline (Zoloft) 100 MG tablet TAKE 2 TABLETS BY MOUTH ONCE DAILY IN THE MORNING 60 tablet 3 traZODone (Desyrel) 100 MG tablet TAKE 1 TABLET BY MOUTH AT BEDTIME 30 tablet 3 Ventolin HFA 108 (90 Base) MCG/ACT inhaler INHALE 2 PUFFS BY MOUTH EVERY 4 HOURS NEEDED FOR WHEEZING OR SHORTNESS OF BREATH 18 g 1 No current facility-administered medications on file prior to visit. documented in this encounter Miscellaneous Notes * Assessment & Plan Note - Monique Ng MD - 07/24/2025 4:26 PM EST Associated Problem(s): Pain of upper abdomen - Low back pain with radiation to the legs, possible sciatica discussed. However given significant abdominal pain., I referred her to ED to ro urolithiasis/renal colic - Sent in an Uber for transportation to emergency services given that she's hemodynamically stable,willing to go to [facility] ED but came in public transportation. - KAL millan PCP documented in this encounter Plan of Treatment Upcoming Encounters Date Type Department Care Team (Late st Contact Info) Description 08/15/2025 11:00 AM EST Office Visit [facility] [address] [place] [address] Melecio Farrell DDS [address], [place] [phone] documented as of this encounter Visit Diagnoses Diagnosis Pain of upper abdomen- Primary documented in this encounter Additional Health Concerns Assessment Noted Time PHQ-9 Depression Total Score: 16 025 12:21 PM EDT documented as of this encounter Care Teams Choral Director Relationship Specialty Start Date End Date Lilo Trent DO [address], [place] [phone] PCP - General Family Medicine 12/18/15 documented as of this encounter
[2025-07-24 17:01] VITALS: BP 153/70; PULSE 80; RESP 16; TEMP 36.8; O2SAT 94; BMI 38.5
--- NOTE | 2025-07-24 17:02 | ED_ITS ---
HPI - General Adult General Chief complaint: Back Pain/Injury Stated complaint: sent from urgent, pain Time Seen by Provider: 07/24/25 20:15 Source: patient Limitations: language barrier History of Present Illness ED Provider: Flores Kyle PA-C HPI narrative: 60-year-old female who is morbidly obese with a history of chronic low back pain, fibromyalgia, kidney stones, hyperlipidemia, hypertension, GERD, depre ssion with a PTSD who presents with right low back pain. Patient states she picked up a car battery, then developed acute onset right back pain. The pain wraps around to the right flank and hip. Pain worse with movement and bending over. Denies urinary retention bowel incontinence, paresthesia or weakness of lower extremity. Denies nausea vomiting diarrhea. Related Data Previous Rx's ?Medication ?Instructions ?Recorded ketorolac 10 mg tablet 10 mg PO Q6H PRN pain #20 ta bs 07/24/25 methocarbamol 750 mg tablet 1,500 mg (2 x 750 mg) PO Q 8H PRN 07/24/25 pain, moderate #24 tabs Allergies Allergy/AdvReac Type Severity Reaction Status Date / Time octopus (OCTOPUS) Allergy Unknown UNKNOWN Verified 07/24/25 17:04 YUCCA Allergy Unknown UNKNOWN Uncoded 07/24/25 17:04 Review of Systems Review of Systems: Yes all other systems are reviewed and are negative Constitutional: Constitutional: Denies fatigue and Denies fever(s) Cardiovascular: Cardiovascular: Reports no additional cardiovascular complaints, Denies chest pain and Denies dyspnea Respiratory: Respiratory: Denies dyspnea Gastrointestinal: Gastrointestinal: Denies abdominal pain, Denies diarrhea, Denies nausea and Denies vomiting Genitourinary: Genitourinary: Reports flank pain Musculoskeletal: Musculoskeletal: Reports back pain, Reports arthralgias, Denies joint swelling, Denies muscle weakness, Denies numbness, Denies radiating pain into limb and Denies tingling Neurologic: Denies numbness and Denies tingling Endocrine: Endocrine: Denies fatigue PMFSH Past Medical History Attestation statement: The following information was validated with the patient. Medical History HTN (hypertension) Surgical History H/O partial resection of colon H/O ventral hernia repair History of carpal tunnel release History of section History of hysterectomy Social History Social History Alcohol intake: unknown Patient Tobacco Use Status: Current someday Tobacco user Advance Directives: No Advance Directives Information Provided: Yes Do you have a plan to hurt others: No Plan Physical Exam ED Vital Signs: Vital Signs - 24 hr 07/24/25 17:01 07/24/25 22:55 Temperature 98.2 F 97.8 F Pulse Rate 80 68 Respiratory Rate 16 16 Blood Pressure 153/70 H 142/67 H Pulse Oximetry 94 97 Oxygen Delivery Method Room Air Room Air BMI result Body Mass Index 38.5 Const Other: Alert well-appearing Orientation/consciousness: patient oriented x3 Resp Effort & Inspection: normal respiratory effort Cardio Other: Normal peripheral perfusion GI Other: Tenderness to palpation along right abdomen without guarding, no deformity, obese abdomen Back/Spine/Pelvis Other: Palpable pain or paraspinous distribution on the right side, no midline tenderness Skin Other: Warm dry no rash Neuro General: patient oriented x3, gait normal, no focal motor deficits and CN's II- XI intact bilaterally Extrem Other: Strength 5/5 bilateral lower extremities Psych Other: Cooperative Course Course Course Narrative: Rapid medical examination performed in triage by Mariam Stewart PA-C: Patient is a 60 year old assigned female at presenting to the emergency department with right sided low back pain. 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 Detailed physical exam and review of systems are deferred to the temporary administrative assistant. Patient placed back in the waiting room pending room availability. Medications Administered Discontinued Medications Generic Name Dose Route Start Last Admin Trade Name Freq PRN Reason Stop Dose Admin Ketorolac Tromethamine 15 mg 07/24/25 20:32 07/24/25 20:43 Ketorolac Tromethamine 15 Mg/Ml Vial IM 07/24/25 20:33 15 mg ONCE ONE Administration Methocarbamol 1,500 mg 07/24/25 20:32 07/24/25 20:43 Methocarbamol 750 Mg Tablet PO 07/24/25 20:33 1,500 mg ONCE ONE Administration Medical Decision Making Medical Decision Making MDM Narrative: 60-year-old female who is morbidly obese with a history of chronic low back pain, fibromyalgia, kidney stones, hyperlipidemia, hypertension, GERD, depression with a PTSD who presents with right low back pain. Patient states she picked up a car battery, then developed acute onset right back pain. The pain wraps around to the right flank and hip. Pain worse with movement and bending over. Denies urinary retention bowel incontinence, paresthesia or weakness of lower extremity. Denies nausea vomiting diarrhea. Problem: Morbid obesity, chronic back pain, fibromyalgia, kidney stones History: Per patient which is limited as she is a poor historian I have considered the following differential diagnoses: Renal colic, biliary colic, cholecystitis, abdominal wall strain, lumbar strain, lumbar radiculopathy, cauda equina , compression fracture Plan: The patient is a very poor historian, I have repeatedly asked her where her pain distribution was, she is having some degree of abdominal pain, yet with no active GI or symptoms. The pain is also reproducible with movement of the torso, she also has paraspinous discomfort with palpation and movement. The overall mechanism is most likely musculoskeletal. Doubtful to be compression fracture, she has no midline tenderness, and there was no trauma to the back. She is not having radicular symptoms, no red flag signs symptoms concerning for cord compression. She is having right-sided abdominal pain with palpation, the distribution is diffuse, given she is such a poor historian, I am ordering a non-con CT scan. Giving methocarbamol and Toradol for her pain. If there was any acute intra-abdominal pathology, I will order labs. I have independently reviewed the following tests: CT abdomen and pelvis:IMPRESSION: No acute traumatic finding. [id number] colonic fecal loading with distended proximal transverse colon and hepatic flexure colon. This could potentially be a cause of acute right upper quadrant abdominal pain and may be a source of referred back pain as well. Differential Diagnosis Differential Diagnoses: The differential diagnosis associated with the presentation includes See medical decision-making Admission/Observation Consideration of admission/observation: Escalation of care including admission/observation considered Not applicable Radiology Impression Discussion of test interpretation with radiology: I have reviewed the radiologist's reading. Discharge Plan Discharge Clinical Impression: Lumbar strain, Osteoarthritis of lumbar spine, Constipation Patient Disposition: Home, Self-Care Instructions: Constipation (ED), Osteoarthritis (ED), Low Back Strain (ED) Additional Instructions: You were found to have arthritis in the hip and in the back, this is the likely reason why you were having pain from the heavy lifting. See home care instructions. Use the ketorolac as directed take it with food this is an anti- inflammatory. Use the methocarbamol as needed for further pain, this is a muscle relaxant. This medication can cause drowsiness do not drive or operate machinery while taking the medication. You were also found to be very constipated. See home care instructions. You need to purchase [id number] Colace, this is a stool softener, take it twice a day. You also need to use [id number] MiraLax, 3-4 times a day until you begin having multiple large volume bowel movements. Follow up with your primary care provider as needed. Prescriptions: New ketorolac 10 mg tablet 10 mg PO Q6H PRN (Reason: pain) Qty: 20 0RF Rx Instructions: maximum total duration of 5 days from all oral, intranasal, or parenteral formulations. The patient received an intramuscular dose of Toradol. methocarbamol 750 mg tablet 1,500 mg PO Q8H PRN (Reason: pain, moderate) Qty: 24 0RF Print Language: Nauruan
--- OUTSIDE RECORDS SUMMARY | 2025-07-24 17:47 | XMS_ITS | Encounter Summary ---
Author Organization [employer] Address [address] [place] [address] Care Team Providers Care Information Assistant Name Role Phone Lilo Trent DO Primary Care Provider Encounter Details Date Type Department Care Team (Late st Contact Info) Description 11/04/2022 Orders Only [facility] [address] [place] [address] Lilo Haywood LPN Social History Tobacco Use Types Packs/Day Years Used Date Smoking Tobacco: Never Assessed Comments Unknown Sex and Gender Information Value Date Recorded Sex Assigned at Female 07/21/2022 10:29 AM EDT Legal Sex Female 10:29 AM EDT Gender Identity Female 07/21/2022 10:29 AM EDT Sexual Orientation Straight 07/21/2022 10 :29 AM EDT documented as of this encounter Plan of Treatment Upcoming Encounters Date Type Department Care Team (Late st Contact Info) Description 08/15/2025 11:00 AM EST Office Visit [facility] [address] [place] [address] Melecio Farrell DDS [address] [place] [address] documented as of this encounter Visit Diagnoses Not on filedocumented in this encounter Care Teams Information Assistant Relationship Specialty Start Date End Date Lilo Trent DO [address] [place] [address] PCP - General Family Medicine 3/29/16 documented as of this encounter
--- OUTSIDE RECORDS SUMMARY | 2025-07-24 17:47 | XMS_ITS | Encounter Summary ---
Author Organization [employer] Address [address] [facility] 7t [place] [address] Care Team Providers Care Senior Finance Manager Name Role Phone Lilo Trent DO Primary Care Provider Reason for Visit * Reason Onset Date Comments Triage 12/05/2022 Encounter Details Date Type Department Care Team ([facility] st Contact Info) Description 12/05/2022 Telephone [facility] MEDICINE [address] [place], [place] [phone] Lilo Trent DO [address] [place] [address] Triage Social History Tobacco Use Types Packs/Day Years Used Date Smoking Tobacco: Never Assessed Comments Unknown Sex and Gender Information Value Date Recorded Sex Assigned at Female 07/21/2022 10:29 AM EDT Legal Sex Female 10:29 AM EDT Gender Identity Female 07/21/2022 10:29 AM EDT Sexual Orientation Straight 07/21/2022 10 :29 AM EDT documented as of this encounter Miscellaneous Notes * Telephone Encounter - [place] - 12/05/2022 3:30 PM EDT Symptoms: Leg Pain - Not From Injury, Pain - Severe Outcome: Schedule an urgent appointment (within 1 hour) or talk to a nurse or provider soon Reason: No high acuity concerns reported by caller The caller accepted this outcome Pt states that she was previously in the emergency room at [facility] but not for current symptom. Please contact pt at [phone] Israeli Speaker documented in this encounter Plan of Treatment Upcoming Encounters Date Type Department Care Team (Late st Contact Info) Description 08/15/2025 11:00 AM EST Office Visit [facility] ADULT DENTAL [address] [place], [place] [phone] Melecio Farrell DDS [address] [place], [place] [phone] documented as of this encounter Visit Diagnoses Not on filedocumented in this encounter Care Teams Senior Finance Manager Relationship Specialty Start Date End Date Lilo Trent DO [address] [place] [address] PCP - General Family Medicine 12/18/15 documented as of this encounter
--- OUTSIDE RECORDS SUMMARY | 2025-07-24 17:47 | XMS_ITS | Encounter Summary ---
Author Organization [employer] Address [address] [facility] 7t [place] [address] Care Team Providers Care Gis Application Developer Name Role Phone Lilo Trent DO Primary Care Provider Reason for Visit * Reason Comments Med Refill Encounter Details Date Type Department Care Team (Late st Contact Info) Description 04/30/[address] [facility] MEDICINE [address] [place] [address] Lilo Trent DO [address] [place] [address] Pain in thoracic spine; Chronic pain of both knees Social History Tobacco Use Types Packs/Day Years Used Date Smoking Tobacco: Every Day Cigarettes Comments Unknown Sex and Gender Information Value [...] Description 08/15/2025 11:00 AM EST Office Visit [facility] ADULT DENTAL [address] [place] [address] Melecio Farrell DDS [address] [place] [address] documented as of this encounter Visit Diagnoses Diagnosis Pain in thoracic spine Chronic pain of both knees documented in this encounter Care Teams Gis Application Developer Relationship Specialty Start Date End Date Lilo Trent DO [address] [place] [address] PCP - General Family Medicine 12/18/15 documented as of this encounter
--- OUTSIDE RECORDS SUMMARY | 2025-07-24 17:47 | XMS_ITS | Encounter Summary ---
Author Organization [employer] Address [address] [facility] 7t [place] [address] Care Team Providers Care Sde Name Role Phone Lilo Trent DO Primary Care Provider [phone] Reason for Visit * Reason Comments Med Refill Encounter Details Date Type Department Care Team (Late st Contact Info) Description 06/06/[address] [facility] MEDICINE [address] [place], [place] [phone] Lilo Trent DO [address] [place], [place] [phone] Social History Tobacco Use Types Packs/Day Years Used Date Smoking Tobacco: Every Day Cigarettes Passive Smoke Exposure: Current Housing Stability Answer Date Recorded What is your housing situation today? I have teri henning 12/29/[address] you [...] Description 08/15/2025 11:00 AM EST Office Visit [facility] ADULT DENTAL [address] [place] [address] Melecio Farrell DDS [address] [place] [address] documented as of this encounter Visit Diagnoses Not on filedocumented in this encounter Care Teams Sde Relationship Specialty Start Date End Date Lilo Trent DO [address] [place] [address] PCP - General Family Medicine 12/18/15 documented as of this encounter
--- OUTSIDE RECORDS SUMMARY | 2025-07-24 17:47 | XMS_ITS | Encounter Summary ---
Author Organization [employer] Address [address] [facility] 7t [place] [address] Care Team Providers Care Supervisory Civil Engineer Name Role Phone Lilo Trent DO Primary Care Provider Encounter Details Date Type Department Care Team (Late st Contact Info) Description 11/27/[address] [facility] [address] [place] [address] Lilo Haywood LPN Social History Tobacco Use [...] Description 08/15/2025 11:00 AM EST Office Visit [facility] ADULT DENTAL [address] [place] [address] Melecio Farrell DDS [address] [place] [address] documented as of this encounter Visit Diagnoses Not on filedocumented in this encounter Care Teams Supervisory Civil Engineer Relationship Specialty Start Date End Date Lilo Trent DO [address] [place] [address] PCP - General Family Medicine 3/29/16 documented as of this encounter
--- OUTSIDE RECORDS SUMMARY | 2025-07-24 17:47 | XMS_ITS | Encounter Summary ---
Author Organization [employer] Address [address] [facility] 7t [place] [address] Care Team Providers Care Adult Secondary Education Instructor Name Role Phone Lilo Trent DO Primary Care Provider + [phone] Encounter Details Date Type Department Care Team ([facility] st Contact Info) Description 07/16/2023 Orders Only [facility] [address] [place] [address] Lilo Haywood LPN Social History Tobacco Use Types Packs/Day Years Used Date Smoking Tobacco: Every Day Cigarettes Housing Stability Answer Date Recorded What is your housing situation today? I have teri henning 07/16/[address] you li ve. Do you have problems with any of the following? None of the above 07/16/2023 Food Insecurity Answer Date Recorded Within the past 12 months, y ou worried that your food would run out before you got money to buy more: Never True 07/16/2023 Within the past 12 months,th e food you bought just didn't last and you didn't have enough money to get more: Never True Transportation Answer Date Recorded In the past 12 months, has l ack of transportation kept you from medical appts, meetings, work or from getting things needed for daily living? No 07/16/2023 Utilities Answer Date Recorded In the past 12 months, has t he electric, gas, oil or water company threatened to shut off services in your home? No 07/16/2023 Comments Unknown Sex and Gender Information Value [...] Description 08/15/2025 11:00 AM EST Office Visit [facility] ADULT DENTAL [address] [place], [place] [phone] Melecio Farrell DDS [address] [place], [place] [phone] documented as of this encounter Visit Diagnoses Not on filedocumented in this encounter Care Teams Adult Secondary Education Instructor Relationship Specialty Start Date End Date Lilo Trent DO [address] [place] [address] PCP - General Family Medicine 12/18/15 documented as of this encounter
--- OUTSIDE RECORDS SUMMARY | 2025-07-24 17:47 | XMS_ITS | Encounter Summary ---
Author Organization [employer] Address [address] [facility] 7t [place] [address] Care Team Providers Care Carrot Grader Inspector Name Role Phone Lilo Trent DO Primary Care Provider Reason for Visit * Reason Comments Med Refill Encounter Details Date Type Department Care Team (Late st Contact Info) Description 09/25/2023 Refill [facility] MEDICINE [address] [place], [place] [phone] Lilo Trent DO 230 [place], [place] [phone] Pain in thoracic spine; Chronic pain of [...] Description 08/15/2025 11:00 AM EST Office Visit [facility] ADULT DENTAL [address] [place] [address] Melecio Farrell DDS [address] [place] [address] documented as of this encounter Visit Diagnoses Diagnosis Pain in thoracic spine Chronic pain of both knees documented in this encounter Care Teams Carrot Grader Inspector Relationship Specialty Start Date End Date Lilo Trent DO [address] [place] [address] PCP - General Family Medicine 12/18/15 documented as of this encounter
--- OUTSIDE RECORDS SUMMARY | 2025-07-24 17:47 | XMS_ITS | Encounter Summary ---
Author Organization [employer] Address [address] [facility] 7t [place] [address] Care Team Providers Care Sinker Puller Name Role Phone Twan Lilo Primary Care Provider [phone] Reason for Visit * Reason Comments Med Refill Encounter Details Date Type Department Care Team ([facility] st Contact Info) Description 07/17/2023 Refill [facility] MEDICINE [address] [place] [address] Sarahi Arnold MD [address] [place] [address] Major depression, recurrent, chronic (CMS/HCC) Social History [...] the past 12 months, has t he [employer], gas, oil or water [employer] threatened to shut off services in your [...] Description 08/15/2025 11:00 AM EST Office Visit [facility] ADULT DENTAL [address] [place], [place] [phone] Melecio Farrell DDS [address] [place], [place] [phone] documented as of this encounter Visit Diagnoses Diagnosis Major depression, recurrent, chronic (CMS/HCC) documented in this encounter Care Teams Sinker Puller Relationship Specialty Start Date End Date Lilo Trent DO [address] [place] [address] PCP - General Family Medicine 12/18/15 documented as of this encounter
--- OUTSIDE RECORDS SUMMARY | 2025-07-24 17:47 | XMS_ITS | Encounter Summary ---
Author Organization [employer] Address [address] [place] [address] 7t [place] [address] Care Team Providers Care Liquor Store Manager Name Role Phone Lilo Trent DO Primary Care Provider Encounter Details Date Type Department Care Team (Late st Contact Info) Description 04/02/2023 Orders Only [facility] MEDICINE [address] [place] [address] Penelope Almaguer LPN Social History Tobacco Use Types Packs/Day [...] Description 08/15/2025 11:00 AM EST Office Visit [facility] ADULT DENTAL [address] [place] [address] Melecio Farrell DDS [address] [place] [address] documented as of this encounter Visit Diagnoses Not on filedocumented in this encounter Care Teams Liquor Store Manager Relationship Specialty Start Date End Date Lilo Trent DO [address] [place] [address] PCP - General Family Medicine 12/18/15 documented as of this encounter
--- OUTSIDE RECORDS SUMMARY | 2025-07-24 17:47 | XMS_ITS | Encounter Summary ---
Author Organization [employer] Address [address] [place] [address] [address] [place] [address] Care Team Providers Care Staff Air Tactical Officer Name Role Phone Lilo Trent DO Primary Care Provider Reason for Visit * Reason Comments Med Refill Encounter Details Date Type Department Care Team (Late st Contact Info) Description 04/23/2023 Refill [facility] MEDICINE [address] [place] [address] Lilo Trent DO [address] [place] [address] Major depressive disorder, single episode, unspecified Social History Tobacco Use Types Packs/Day Years [...] Description 08/15/2025 11:00 AM EST Office Visit [facility] ADULT DENTAL [address] [place] [address] Melecio Farrell DDS [address] [place] [address] documented as of this encounter Visit Diagnoses Diagnosis Major depressive disorder, single episode, unspecified documented in this encounter Care Teams Staff Air Tactical Officer Relationship Specialty Start Date End Date Lilo Trent DO [address] [place] [address] PCP - General Family Medicine 12/18/15 documented as of this encounter
--- OUTSIDE RECORDS SUMMARY | 2025-07-24 17:47 | XMS_ITS | Encounter Summary ---
Author Organization [employer] Address [address] [facility] 7t [place] [address] Care Team Providers Care Oracle Endeca Consultant Name Role Phone Lilo Trent DO Primary Care Provider [phone] Reason for Visit * Reason Comments Med Refill Encounter Details Date Type Department Care Team (Late st Contact Info) Description 05/18/[address] [facility] MEDICINE [address] [place] [address] Lilo Trent DO [address] [place] [address] Pain in thoracic spine; Chronic pain of [...] Visit [facility] ADULT DENTAL [address] [place] [address] Melecio Farrell DDS [address] [place] [address] documented as of this encounter Visit Diagnoses Diagnosis Pain in thoracic spine Chronic pain of both knees documented in this encounter Care Teams Oracle Endeca Consultant Relationship Specialty Start Date End Date Lilo Trent DO [address] [place] [address] PCP - General Family Medicine 12/18/15 documented as of this encounter
--- OUTSIDE RECORDS SUMMARY | 2025-07-24 17:47 | XMS_ITS | Clinical Summary ---
Author Organization [employer] Address [address] [facility] [address] [place] [address] Care Team Providers Care Bulk Folder Name Role Phone LavernLilo alvarado Primary Care Provider Allergies Active Allergy Reactions Criticality Noted Date Comments Shellfish Allergy 02/19/2021 Octopus Medications fluticasone (Flonase) 50 MCG/ACT nasal sprayIndications: Allergic rhinitis, unspecified seasonality, unspecified trigger USE 2 SPRAYS IN EACH NOSTRIL ONCE DAILY 48 g 1 12/10/19 23 Active cholestyramine light (Prevalite) 4 g packetIndications :Depression, unspecified depression type MIX 1 PACKET WITH 2 TO 6 OUNCES OF WATER TWICE DAILY 180 packet 1 03/30/20 24 Active Diclofenac Sodium 1 % gelIndications:Sa croiliitis (CMS/HCC) Apply 2 g topically if needed in the morning, at noon, in the evening, and at bedtime (pain). 150 g 09/08/20 24 Active Arnuity Ellipta 50 MCG/ACT inhaler INHALE 1 PUFF BY MOUTH EVERY DAY AT THE SAME TIME RINSE MOUTH AFTER USING 30 each 5 02/21/20 25 Active baclofen (Lioresal) 10 MG tablet TAKE 1 TABLET BY MOUTH THREE TIMES DAILY IN THE MORNING, AT NOON, AND AT BEDTIME NEEDED FOR MUSCLE SPASMS 60 tablet 3 04/06/20 25 Active Acetaminophen Extra Strength 500 MG tabletIndications :Pain in thoracic spine,Chronic pain of both knees TAKE 1 TABLET BY MOUTH EVERY 6 HOURS NEEDED FOR PAIN OR FEVER 100 tablet 2 04/18/20 25 Active gabapentin (Neurontin) 300 MG capsule Take 1 capsule (300 mg) by mouth 3 times daily. 90 capsule 3 04/24/20 25 Active Aspirin Low Dose 81 MG EC tabletIndications :Other hyperlipidemia TAKE 1 TABLET BY MOUTH AT BEDTIME 90 tablet 1 05/16/20 25 Active loratadine (Claritin) 10 MG tabletIndications :Seasonal allergic rhinitis, unspecified trigger TAKE 1 TABLET BY MOUTH EVERY DAY 90 tablet 1 05/16/20 25 Active traZODone (Desyrel) 100 MG tabletIndications :Major depression, recurrent, chronic (CMS/HCC) TAKE 1 TABLET BY MOUTH AT BEDTIME 30 tablet 3 05/18/20 25 Active sertraline (Zoloft) 100 MG tabletIndications :Major depression, recurrent, chronic (CMS/HCC) TAKE 2 TABLETS BY MOUTH ONCE DAILY IN THE MORNING 60 tablet 3 05/18/20 25 Active atorvastatin (Lipitor) 10 MG tabletIndications :Other hyperlipidemia TAKE 1 TABLET BY MOUTH AT BEDTIME 90 tablet 1 05/25/20 25 Active atorvastatin (Lipitor) 10 MG tabletIndications :Other hyperlipidemia Take 1 tablet (10 mg) by mouth at bedtime. 90 tablet 1 05/25/20 25 Active Ventolin HFA 108 (90 Base) MCG/ACT inhaler INHALE 2 PUFFS BY MOUTH EVERY 4 HOURS NEEDED FOR WHEEZING OR SHORTNESS OF BREATH 18 g 1 07/04/20 25 Active buPROPion XL (Wellbutrin XL) 300 MG 24 hr tabletIndications :Major depression, recurrent, chronic (CMS/HCC) TAKE 1 TABLET BY MOUTH EVERY MORNING DO NOT BREAK, CRUSH, DISSOLVE OR CHEW 30 tablet 5 07/13/20 25 Active lidocaine (Lidoderm) 5 % patchIndications: Chronic low back pain, unspecified back pain laterality, unspecified whether sciatica present APPLY 2 PATCHES TOPICALLY TO SKIN, LEAVE ON FOR 12 HOURS AND OFF FOR 12 HOURS DIRECTED 60 patch 5 07/13/20 25 Active melatonin 5 MG tabletIndications :Major depression, recurrent, chronic (CMS/HCC) TAKE 2 TABLETS BY MOUTH EVERY DAY AT BEDTIME 60 tablet 5 07/13/20 25 Active omeprazole (PriLOSEC) [address] capsule Take 1 capsule (20 mg) by mouth before breakfast and before evening meal. Do not crush or chew. 180 capsule 1 07/14/20 25 Active amLODIPine (Norvasc) 5 MG tablet Take 1 tablet (5 mg) by mouth at bedtime. 90 tablet 1 07/14/20 Active cyanocobalamin (Vitamin B-12) 1000 MCG tablet Take 1 tablet (1,000 mcg) by mouth in the morning. 90 tablet 1 07/14/20 Active cholecalciferol (D3 Super Strength) 50 MCG (2000 UT) capsule Take 1 capsule (50 mcg) by mouth in the morning. 90 capsule 1 07/14/20 Active Ventolin HFA 108 (90 Base) MCG/ACT inhaler INHALE 2 PUFFS BY MOUTH EVERY 4 HOURS NEEDED FOR WHEEZING OR SHORTNESS OF BREATH 18 g 1 08/26/20 24 2024 Discontinued lidocaine (Lidoderm) 5 % patchIndications: Chronic low back pain, unspecified back pain laterality, unspecified whether sciatica present APPLY 2 PATCHES TOPICALLY TO SKIN, LEAVE ON FOR 12 HOURS AND OFF FOR 12 HOURS DIRECTED 60 patch 5 09/30/192024 Discontinued D3 Super Strength 50 MCG (2000 UT) capsule TAKE 1 CAPSULE BY MOUTH EVERY MORNING 90 capsule 1 01/27/202024 Discontinued(R eorder (will not trigger notification to Pharmacy)) omeprazole (PriLOSEC) [address] capsule TAKE 1 CAPSULE BY MOUTH TWICE DAILY IN THE MORNING AND IN THE EVENING BEFORE MEALS 180 capsule 1 01/27/20 25 2024 Discontinued(R eorder (will not trigger notification to Pharmacy)) cyanocobalamin (Vitamin B-12) 1000 MCG tablet TAKE 1 TABLET BY MOUTH EVERY MORNING 90 tablet 1 01/27/20 25 2024 Discontinued(R eorder (will not trigger notification to Pharmacy)) amLODIPine (Norvasc) 5 MG tablet TAKE 1 TABLET BY MOUTH EVERY EVENING 90 tablet 1 01/27/20 25 2024 Discontinued(R eorder (will not trigger notification to Pharmacy)) melatonin 5 MG tabletIndications :Major depression, recurrent, chronic (CMS/HCC) TAKE 2 TABLETS BY MOUTH EVERY DAY AT BEDTIME 60 tablet 5 01/27/20 25 2024 Discontinued buPROPion XL (Wellbutrin XL) 300 MG 24 hr tabletIndications :Major depression, recurrent, chronic (CMS/HCC) TAKE 1 TABLET BY MOUTH EVERY MORNING .DNC 30 tablet 5 01/28/20 2024 Discontinued Active Problems Problem Noted Date Diagnosed Date Pain of upper abdomen 07/24/2025 Assessment & Plan (07/24/2025 4:26 PM EST): - Low back pain with radiation to the legs, possible sciatica discussed. However given significant abdominal pain., I referred her to ED to ro urolithiasis/renal colic - Sent in an Uber for transportation to emergency services given that she's hemodynamically stable, willing to go to [facility] ED but came in public transportation. - FU w PCP Complete edentulism 12/09/2024 Atrophic maxilla 12/09/2024 Healthcare maintenance 01/07/2024 Assessment & Plan (01/07/2024 2:38 PM EDT): -s/p flu vaccine DEC 2022 -s/p COVID vaccine today -s/p Tdap DEC 2015 -s/p pneumovax DEC 2015 -s/p PCV20 today -s/p shingrix vaccine OCT 2021 -PPD neg DEC 2016 -mammo BIRADS 21 MAR 2021->re-referred for repeat -s/p hysterectomy FEB 2014 2/2 fibroid uterus with no h/o abnml paps, no need for further screening, unable to obtain pathology records from [place] -colonoscopy with diverticulosis and internal hemorrhoids JUN 2018 -A1c 4.28 JUN 2019->repeat with fasting labs -STI/HIV screening negative JUN 2019 Acute pain of right shoulder 12/22/2023 Pain of right upper extremity 12/22/2023 Pain of right hip 12/22/2023 Rib pain 12/22/2023 Chronic pain of both knees 12/22/2023 Assessment & Plan (01/07/2024 2:35 PM EDT): -knee XR with mild, multi-compartment arthritic changes DEC 2023 -pain meds as above -she declines PT/ortho eval at this time Fatty liver 12/23/2022 Assessment & Plan (01/07/2024 2:28 PM EDT): -abd US with echogenic liver, no focal lesion JUN 2019->referred for repeat -LFTs nml JUN 2019->repeat with AFP -offer Hep A/B vaccine next visit* Chronic diarrhea 12/23/2022 Assessment & Plan (01/07/2024 2:31 PM EDT): -colonoscopy with no evidence of colitis Jun 2018 -cont imodium prn -restart cholestyramine BID -re-referred to GI for f/u Allergic rhinitis 12/23/2022 Renal cyst 12/23/2022 Hyperlipidemia 12/23/2022 Assessment & Plan (01/07/2024 2:27 PM EDT): LDL at goal JUN 2019 -cont lipitor and aspirin daily -check lipids prior to next visit Chronic low back pain 12/23/2022 Assessment & Plan (01/07/2024 2:34 PM EDT): Severe worsening pain s/p fall -referred for T-spine and L-spine XR -cont tylenol and naproxen -restart baclofen to help with muscle spasm -cont tramadol prn -increase lidocaine patches to 2 patches daily -referred to PT -advised contact [facility] if sx change or worsen Post traumatic stress disorder 12/23/2022 Vitamin B12 deficiency 08/01/2016 Vitamin D deficiency 03/07/2016 Anxiety 12/25/2015 Essential hypertension 12/25/2015 Assessment & Plan (01/07/2024 2:27 PM EDT): BP controlled -cont norvasc daily -Cr/GFR and urine microalbumin wnl JUN 2019->repeat prior to next visit -there is EKG in chart -s/p optho eval Sep [facility], referred for eye exam Assessment & Plan (12/22/2023 2:19 PM EDT): Blood pressure is high today very likely due to pain I advise low Na diet and to take her meds every day, I advise to check her BP at home Chronic gastroesophageal reflux disease 12/25/19 16 Assessment & Plan (01/07/2024 2:31 PM EDT): -EGD with gastritis with erosions JUN 2018 -cont prilosec BID -re-referred to GI for f/u Mild intermittent asthma 12/25/2015 Obesity 12/25/2015 Major depression, recurrent, chronic 12/25/2015 Assessment & Plan (01/07/2024 2:27 PM EDT): -she denies any SI/HI -she has the number for crisis and contracts for safety -continue current med regimen as per psychiatrist -f/u with therapist and psychiatrist as scheduled Fibromyalgia 12/25/2015 Assessment & Plan (01/07/2024 2:32 PM EDT): With chronic pain -JANI, ESR, CRP, and RF wnl Apr 2017 -cont baclofen, tylenol/naprosyn prn -increase gabapentin to 300mg TID -strongly encourgaed trial acupuncture at [facility] -L-spine x-rays with minimal OA Jul 2016 -T-spine xrays with mild curvature and spondylosis Aug 2016 -T-spine MRI with mild curvature and mild OA Sep 2016 -f/u with rheumatology prn Encounters Date Type Department Care Team Description 07/24/2025 3:40 PM EST Office Visit [facility] [address] [place] [address] Jani Ng MD Pain of upper abdomen (Primary Dx) 07/24/2025 Travel 07/14/2025 Refill [facility] [address] [place] [address] Lilo Trent DO 07/12/2025 Refill [facility] [address] [place] [address] Lilo Trent DO Major depression, recurrent, chronic (CMS/HCC); Chronic low back pain, unspecified back pain laterality, unspecified whether sciatica present 07/02/2025 Refill [facility] [address] [place] [address] Lilo Trent DO 06/28/2025 2:30 PM EDT Office Visit [facility] [address] [place] [address] Bolano, Melecio, DDS Complete edentulism, unspecified edentulism class (Primary Dx) 05/23/2025 Refill [facility] [address] [place] [address] Lilo Trent DO Other hyperlipidemia 05/23/2025 Refill [facility] [address] [place] [address] Lilo Trent DO Other hyperlipidemia 05/18/2025 Telephone [facility] [address] [place] [address] MinisterioJocelynn mercado, OD 05/17/2025 Refill [facility] [address] [place] [address] Lilo Trent DO Major depression, recurrent, chronic (CMS/HCC) 05/16/2025 Refill [facility] [address] [place] [address] Lilo Trent DO Other hyperlipidemia; Seasonal allergic rhinitis, unspecified trigger 05/05/2025 11:00 AM EDT Office Visit [facility] [address] [place] [address] Lilo Trent DO Essential hypertension (Primary Dx); Other hyperlipidemia; Major depression, recurrent, chronic (CMS/HCC); Fatty liver; Chronic gastroesophageal reflux disease; Chronic diarrhea; Fibromyalgia; Chronic neck and back pain; Chronic pain of both knees; Chronic pain of left knee; Syncope, unspecified syncope type; Healthcare maintenance 05/05/2025 Orders Only [facility] [address] [place] [address] Lilo Trent DO 05/05/2025 Travel 05/04/2025 Telephone [facility] [address] [place] [address] Lilo Trent DO chart prep 04/27/2025 Telephone [facility] [address] [place] [phone] Lilo Trent DO Recall Appointment 04/27/2025 Travel 04/24/2025 Refill [facility] [address] [place], [place] [phone] Lilo Trent DO from Last 3 Months Immunizations Immunization Administration Dates Next Due Influenza Injectable Quadriv alant Preservative Free IIV4 MDCK 09/17/2021 Influenza injectable quadriv alent IIV4 with preservative 06/21/2018,08/07/2016 Influenza injectable quadriv alent preservative free 12/23/2022,07/20/2017,12/25/2015 Moderna Covid-19 Vaccine 6+ Bivalent 12/23/2022 Pfizer Covid-19 Vaccine 12+ 01/07/2024 Pneumococcal Conjugate PCV 20 01/07/2024 Pneumococcal Polysaccharide PPSV23 04/17/2016, Tdap 12/25/2015 Zoster, Recombinant 11/18/2021,09/17/2021 Family History Relation Name Status Comments Brother Father Father's Brother Father's Sister Maternal Grandfather Maternal Grandmother Mother Mother's Brother Mother's Sister Other Paternal Grandfather Paternal Grandmother Sister Social History Tobacco Use Types Packs/Day Years Used Date Smoking Tobacco: Every Day Cigarettes Passive Smoke Exposure: Current Tobacco Cessation:Ready to Q uit: Not Asked; Counseling Given: Not Answered Alcohol Use Standard Drinks/Week Comments Defer 0 (1 standard drink = 0.6 oz pur e alcohol) Depression Answer Date Recorded Patient Health Questionnaire-9 Score 16 05/05/2025 Patient Health Questionnaire-9 Score 16 05/05/2025 Last PHQ-9: Questionnaire Data Not on file 0 05/05/2025 Housing Stability Answer Date Recorded What is your housing situation today? I have teriwilly henning 05/05/[address] you [...] Orientation Straight 07/21/2022 10 :29 AM EDT Last Filed Vital Signs Vital Sign Reading Time Taken Comments Blood Pressure 144/82 07/24/2025 3:42 PM EST Pulse 92 07/24/2025 3:42 PM EST Temperature 36.6 C (97.8 F) 07/24/2025 3:42 PM EST Respiratory Rate 20 07/24/2025 3:42 PM EST Oxygen Saturation 96% 05/05/2025 11: 05 AM EDT Inhaled Oxygen Concentration - - Weight 83.8 kg (184 lb 12.8 oz) 07/24/2025 3:42 PM EST Height 147.3 cm (4' 10 ) 07/24/2025 3:42 PM EST Body Mass Index 38.62 07/24/2025 3:42 PM EST Plan of Treatment Upcoming Encounters Date Type Department Care Team (Late st Contact Info) Description 08/15/2025 11:00 AM EST Office Visit [facility] [address] [place] [address] Melecio Farrell, DUY [address] [place] [address] Health Maintenance Due Date Last Done Comments CT Colonography 1965 Dental Prophylaxis 1965 FIT DNA/Cologuard 1965 FIT 1965 FOBT 1965 Sigmoidoscopy 1965 Hepatitis A Vaccines (1 of 2 - Risk 2-dose series) 01/23/1983 Pap Smear 01/23/1985 Cervical Cancer Screening 01/23/1994 HPV/Cotest 01/23/1994 Dental X-Ray: Bitewings 03/12/2017 03/11/2016 Hepatitis B Vaccines (1 of 3 - Risk 3-dose series) 2024 RSV Patients and Patients Aged 60 years or older (1 - Risk 60-74 years 1-dose series) 2024 COVID-19 Vaccine ( - season) 2025 01/07/2024, 12/23/2022, 09/17/2021, Additional history exists Influenza Vaccine (#1) 2025 , 09/17/2021, 06/21/2018, Additional history exists Dental Oral Exam 06/12/2025 12/09/2024, , 03/11/2016 Depression Monitoring 11/05/2025 05/05/2025, 025 DTaP/Tdap/Td Vaccines (2 - Td or Tdap) 12/24/2025 12/25/2015 Mammogram 03/15/2026 03/15/2024, 03/22, 06/16/2018 Alcohol/Substance Use Screening 05/05/2026 05/05/2025 Disability Screening 05/05/2026 05/05/2025 SDOH Screening 05/05/2026 05/05/2025 Tobacco Screening 06/28/2026 06/28/2025 Dental X-Ray: Full Mouth 12/11/2027 12/09/2024, 02/20 Colonoscopy 07/15/2028 07/15/2018 Colorectal Cancer Screening 07/15/2028 Lipid Panel 05/05/2030 05/05/2025 Zoster Vaccines Completed 11/18/2021, 09/17/2021 Pneumococcal Vaccine: 50+ Years Completed 01/07/2024, 04/17/2016, 12/25/2015 HIV Screening Completed 05/05/2025 Hepatitis C Screening Completed 05/05/2025 HIB Vaccines Aged Out No longer eligi ble based on patient's age to complete this topic HPV Vaccines Aged Out No longer eligi ble based on patient's age to complete this topic IPV Vaccines Aged Out No longer eligi ble based on patient's age to complete this topic Meningococcal B Vaccine Aged Out No l onger eligible based on patient's age to complete this topic Meningococcal Vaccine Aged Out No arnie delmi eligible based on patient's age to complete this topic RSV under 20 months Aged Out No longe r eligible based on patient's age to complete this topic Rotavirus Vaccines Aged Out No longer eligible based on patient's age to complete this topic Procedures Procedure Name Priority Date/Time Associated Diagnosis Comments DENTURE IMPRESSION Routine 06/28/2025 2: 30 PM EDT XR CERVICAL SPINE 3V Routine 05/05/2025 12:42 PM EDT ALPHA FETOPROTEIN, TUMOR MARKER Routine 05/05/2025 12:20 PM EDT Fatty liver HEPATITIS B CORE AB TOTAL Routine 05/05/2025 12:20 PM EDT Essential hypertension HEPATITIS A ANTIBODY, TOTAL Routine 05/05/2025 12:20 PM EDT Essential hypertension HEPATITIS B SURFACE ANTIBODY, QUALITATIVE Routine 05/05/2025 12:20 PM EDT Essential hypertension RPR (MONITOR) W/REFL TITER Routine 05/05/2025 12:20 PM EDT Essential hypertension HEPATITIS C AB W/REFL TO HCV RNA, QN, PCR Routine 05/05/2025 12:20 PM EDT Essential hypertension HIV 1/2 ANTIGEN/ANTIBODY, FOURTH GENERATION W/RFL Routine 05/05/2025 12:20 PM EDT Essential hypertension HEPATITIS B SURFACE ANTIGEN, EIA Routine 05/05/2025 12:20 PM EDT Essential hypertension ALBUMIN, RANDOM URINE W/CREATININE Routine 05/05/2025 12:20 PM EDT Essential hypertension CBC Routine 05/05/2025 12:20 PM EDT Essential hypertension BASIC METABOLIC PANEL Routine 05/05/2025 12:20 PM EDT Essential hypertension HEMOGLOBIN A1C Routine 05/05/2025 12:20 PM EDT Essential hypertension HEPATIC FUNCTION PANEL Routine 05/05/2025 12:20 PM EDT Essential hypertension TSH Routine 05/05/2025 12:20 PM EDT Essential hypertension LIPID PANEL, STANDARD Routine 05/05/2025 12:20 PM EDT Essential hypertension VITAMIN D,25-OH,TOTAL,IA Routine 05/05/2025 12:20 PM EDT Essential hypertension T4, FREE Routine 05/05/2025 12:20 PM EDT Essential hypertension XR KNEE 4+ VIEWS LEFT Routine 05/05/2025 12:13 PM EDT Chronic pain of left knee XR THORACIC SPINE 2 VIEWS Urgent 05/05/2025 12:11 PM EDT Chronic neck and back pain XR LUMBAR SPINE 2-3 VIEWS Routine 05/05/2025 12:09 PM EDT Chronic neck and back pain PANORAMIC RADIOGRAPHIC IMAGE Routine 12/09/2024 1:30 PM EDT PERIODIC ORAL EVALUATION - ESTABLISHED PATIENT Routine 12/09/2024 1:30 PM EDT BI MAMMOGRAM SCREENING TOMOSYNTHESIS BILATERAL Routine 03/15/2024 12:50 PM EDT HM COLONOSCOPY Routine 07/15/2018 INTRAORAL - COMPLETE SERIES OF RADIOGRAPHIC IMAGES Routine 03/11/2016 12:00 AM EDT from Last 3 Months or Most Recently Relevant to Health Maintenance Results * XR CERVICAL SPINE 3V (05/05/2025 12:42 PM EDT) Anatomical Region Laterality Modality Abdomen Radiographic Freida ging 05/05/2025 12:4 2 PM EDT Narrative 05/05/2025 1:31 PM EDT [address] [address] XRay Report Signed Patient: Zoë Johnson MR#: [id number] : 1965 Acct:[id number] Age/Sex: 60 / F ADM Date: 05/05/25 Loc: [place] Attending Dr: Lilo Trent DO Ordering Physician: Lilo Trent DO Date of Service: 05/05/25 Procedure(s): XR cervical spine 3V Accession Number(s): [id number] cc: Lilo Trent DO EXAMINATION: XR CERVICAL SPINE CLINICAL INFORMATION: PAIN COMPARISON: Correlated to MRI dated October 09, 2017. TECHNIQUE: AP lateral and atlantoodontoid views. FINDINGS: Craniocervical junction is intact. Small marginal osteophyte formation C5-6 and C6-7 levels. No acute cortical disruption or malalignment. No lytic or blastic lesions. Upper airway is patent. Edentulous. XR/XR cervical spine 3V IMPRESSION: Mild spondylosis C5-6 and C6-7. Electronically signed by: Avi Solis MD 05/05/2025 01:28 PM EDT Dictated By: Avi Coombs MD Signed By: <Electronically signed by Avi Agosto MD in [place]> 05/05/25 1328 DD/ 1242 TD/TT: 05/05/25 1300 Door Glass Installer: Procedure Note Donotuseinterpreter, Image - 05/05/2025 [place] [address] XRay Report Signed Patient: Chikis Johnson#: [id number] : 1965Acct:[id number] Age/Sex: 60 / FADM Date: 05/05/25 Loc: [place] Attending Dr: Lilo Trent DO Ordering Physician: Lilo Trnet DO Date of Service: 05/05/25 Procedure(s): XR cervical spine 3V Accession Number(s): [id number] cc: Lilo Trent DO EXAMINATION: XR CERVICAL SPINE CLINICAL INFORMATION: PAIN COMPARISON: Correlated to MRI dated October 09, 2017. TECHNIQUE: AP lateral and atlantoodontoid views. FINDINGS: Craniocervical junction is intact. Small marginal osteophyte formation C5-6 and C6-7 levels. No acute cortical disruption or malalignment. No lytic or blastic lesions. Upper airway is patent. Edentulous. XR/XR cervical spine 3V IMPRESSION: Mild spondylosis C5-6 and C6-7. Electronically signed by: Avi Solis MD 05/05/2025 01:28 PM EDT RP Dictated By: Avi Coombs MD Signed By: <Electronically signed by Avi Agosto MDin OV> 05/05/25 1328 DD/ 1242 TD/TT: 05/05/25 1300 Door Glass Installer: us Lilo Trent DO IMG XR PROCEDURES Final Resu lt * Vitamin D, 25-Hydroxy, Total, Immunoassay (05/05/2025 12:20 PM EDT) Vitamin D 25-OH Total 52.7 >30 ng/mL [facility] Comment: Health Based Reference Values*< 20 ng/mL Vhycrhdhg94-95 ng/mL Insufficient> 30 ng/mL Sufficient*Amalia GONZALES. N Engl J Med. 2007;357:266-280There is no well-established upper level of normal vitamin Dlevels. Some laboratories use 50 ng/mL as an upper limit ofnormal. However, toxicity is patient-dependent and may occurat any level. Careful correlation with the patient'spresentation is necessary and, if there is concern forvitamin D toxicity, treatment should be consideredirrespective of the serum level.Care must be taken in interpreting Vitamin D results fromdifferent laboratories and methodologies. Published datademonstrated that results from patients undergoinghemodialysis may show a negative bias when tested withvarious automated 25-OH vitamin D assays when compared toLC-MS/MS.When testing samples from patients whose predominant form ofVitamin D is Vitamin D2, such as patients receiving VitaminD2 supplementation, results that are subtherapeutic shouldbe confirmed with another method such as LC-MS/MS. Blood Venous blood specimen / Unknown 05/05/2025 12:20 PM EDT 05/05/2025 1:25 PM EDT Lilo Trent DO LAB BLOOD ORDERABLES Final R esult Performing Organization Address [facility]/ZIP Co de Phone Number [facility] [address] [place] [phone] * Albumin, Random Urine W/Creatinine (05/05/2025 12:20 PM EDT) Creatinine, Urine 223.04 mg/dL [facility] Microalbumin Urine 17.0 mg/L [facility] Microalbum Creatinine Ratio Ur 7.6 <30 ug/mg cr [facility] Comment:Albumin/Creatinine R atio Reference Ranges: Normal: < 30 ug/mg creatinine Microalbuminuria: 30 - 300 ug/mg creatinineClinical Albuminuria: > 300 ug/mg creatinine Urine (Urine, Random) 05/05/2025 12:20 PM EDT 05/05/2025 1:00 PM EDT Lilo Trent DO LAB URINE ORDERABLES Final R esult Performing Organization Address [facility] Co de Phone Number [facility] [address] [place] [phone] * Hepatitis C Antibody with Reflex to HCV, RNA, Quantitative, Real-Time PCR (05/05/2025 12:20 PM EDT) Hepatitis C Antibody Nonreactive Nonreactive [facility] Comment:Antibodies to HCV no t detected; does not exclude early acuteHCV infection. Blood Venous blood specimen / Unknown 05/05/2025 12:20 PM EDT 05/05/2025 1:25 PM EDT Lilo Trent DO LAB BLOOD ORDERABLES Final R esult Performing Organization Address City/[facility]/ZIP Co de Phone Number [facility] [address] [place] [phone] * Hepatitis A Antibody, Total (05/05/2025 12:20 PM EDT) Hepatitis A Antibody IgG Nonreactive Nonreactive [facility] Blood Venous blood specimen / Unknown 05/05/2025 12:20 PM EDT 05/05/2025 1:25 PM EDT Lilo Twan DO LAB BLOOD ORDERABLES Final R esult Performing Organization Address [facility] Co de Phone Number [facility] [address] [place] [phone] * Alpha-Fetoprotein, Tumor Marker (05/05/2025 12:20 PM EDT) Pathologist [facility] [place] Alpha Fetoprotein 3.0 ng/mL [facility] Comment:Reference Range: <6. 1The use of AFP as a tumor marker in females is not recommended.This test was performed using the Ambika Coulterchemiluminescent method. Values obtained fromdifferent assay methods cannot be usedinterchangeably. AFP levels, regardless ofvalue, should not be interpreted as absoluteevidence of the presence or absence of disease.THIS TEST WAS PERFORMED AT:[facility] [place] [id number] JUAREZ MD Blood Venous blood specimen / Unknown 05/05/2025 12:20 PM EDT 05/05/2025 1:25 PM EDT Lilo Trent DO LAB BLOOD ORDERABLES Final R esult Performing Organization Address City/[facility]/ZIP Co de Phone Number [facility] [address] [place] [phone] * Hepatitis B surface antigen, EIA (05/05/2025 12:20 PM EDT) Pathologist [facility] [place] Hepatitis B Surface Ag Negative Negative [facility] Blood Venous blood specimen / Unknown 05/05/2025 12:20 PM EDT 05/05/2025 1:25 PM EDT Lilo Trent DO LAB BLOOD ORDERABLES Final R esult Performing Organization Address City/[facility]/ZIP Co de Phone Number [facility] [address] [place] [phone] * Hepatitis B Core Antibody, Total (05/05/2025 12:20 PM EDT) Hepatitis B Core Antibody Nonreactive Nonreactive [facility] Blood Venous blood specimen / Unknown 05/05/2025 12:20 PM EDT 05/05/2025 1:25 PM EDT Lilo Trent DO LAB BLOOD ORDERABLES Final R esult Performing Organization Address [facility] Co de Phone Number [facility] [address] [place] [phone] * RPR (Monitor) with Reflex to??Titer (05/05/2025 12:20 PM EDT) RPR (Monitor) w/Refl Titer NON-REACTI VE NON-REACT FESTUS [facility] Comment:THIS TEST WAS PERFOR MED AT:[facility] [address] [id number] JUAREZ MD Rapid Plasma Reagin Ab Titer TNP [facility] Blood Venous blood specimen / Unknown 05/05/2025 12:20 PM EDT 05/05/2025 1:25 PM EDT Lilo Trent DO LAB BLOOD ORDERABLES Final R esult Performing Organization Address [facility] Co de Phone Number [facility] [address] [place] [phone] * HIV-1/2 Antigen and Antibodies, Fourth Generation, with Reflexes (05/05/2025 12:20 PM EDT) [facility] HIV AB/AG Nonreactive Nonreactive [facility] Comment:HIV-1 p24 Ag and/or HIV-1/HIV-2 Ab not detected.A test result that is nonreactive does not exclude thepossibility of exposure to or infection with HIV-1 and/orHIV-2. Nonreactive results in this assay for individualswith prior exposure to HIV-1 and/or HIV-2 may be due toantigen and antibody levels that are below the limit ofdetection of this assay.The [employer] HIV Ag/Ab Combo assay result andsupplemental assay results should be interpreted inconjunction with the patient's clinical presentation,history and other laboratory results. If the results areinconsistent with clinical evidence, additional testing issuggested to confirm the result. Blood Venous blood specimen / Unknown 05/05/2025 12:20 PM EDT 05/05/2025 1:25 PM EDT Lilo Trent DO LAB BLOOD ORDERABLES Final R esult Performing Organization Address City/[facility]/ZIP Co de Phone Number [facility] [address] [place] [phone] * Hepatitis B Surface Antibody, Qualitative (05/05/2025 12:20 PM EDT) [facility] ~Hepatitis B Surface Antibody NONREACTIVE Nonreactive [facility] Comment:Nonreactive: < 8.00 mIU/mL Blood Venous blood specimen / Unknown 05/05/2025 12:20 PM EDT 05/05/2025 1:25 PM EDT Lilo Trent DO LAB BLOOD ORDERABLES Final R esult Performing Organization Address City/[facility]/ZIP Co de Phone Number [facility] [address] [place] [phone] * CBC (05/05/2025 12:20 PM EDT) White Blood Count 7.9 4.8 - 10.8 X10*3/uL [facility] Red Blood Count 4.49 4.20 - 5.50 X10*6/uL [facility] Hemoglobin 12.8 12.0 - 16.0 g/dl [facility] Hematocrit 39.9 37.0 - 47.0 % [facility] Mean Corpuscular Volume 88.9 80.0 - 98.0 fL [facility] Mean Corpuscular Hemoglobin 28.5 27.0 - 33.0 pg [facility] Mean Corpuscular HGB Conc 32.1 31.0 - 35.0 g/dl [facility] Red Cell Distribution Width 13.7 11.0 - 16.0 % [facility] Platelet Count 229 160 - 400 X10*3/uL [facility] Mean Platelet Volume 10.2 9.4 - 12.3 fL [facility] NRBC Pct Auto 0.0 0.0 - 0.2 /100WBC [facility] NRBC Abs Auto 0.000 0.0 - 0.012 X10*3/uL [facility] Blood Venous blood specimen / Unknown 05/05/2025 12:20 PM EDT 05/05/2025 1:25 PM EDT Lilo Trent DO LAB BLOOD ORDERABLES Final R esult [facility] [address] [place] [phone] * TSH (05/05/2025 12:20 PM EDT) Pathologist [facility] [place] Thyroid Stimulating Hormone 1.10 0.32 - 4.0 uIU/mL [facility] Comment:TSH 3rd Generation ( [facility]) Blood Venous blood specimen / Unknown 05/05/2025 12:20 PM EDT 05/05/2025 1:25 PM EDT Lilo Trent DO LAB BLOOD ORDERABLES Final R esult Performing Organization Address [facility]/ZIP Co de Phone Number [facility] [address] [place] [phone] * T4, Free (05/05/2025 12:20 PM EDT) Free T4 (Free Thyroxine) 1.07 0.71 - 1.85 ng/dL [facility] Blood Venous blood specimen / Unknown 05/05/2025 12:20 PM EDT 05/05/2025 1:25 PM EDT Lilo Lavernchristiano [facility] LAB BLOOD ORDERABLES Final R esult Performing Organization Address [facility] Co de Phone Number [facility] [address] [place] [phone] * Hemoglobin A1c (05/05/2025 12:20 PM EDT) Hemoglobin A1c 5.6 <6.0 % [facility] Comment:Hemoglobin A1C Refer ence Range Adults: 4.8 - 6.0 % Non diabetic: < 6.0 % Goal: < 7.0 %Additional Action Suggested: > 8.0 %Note: Hemoglobin A1c results are invalid for patients with abnormal amounts of HbF. Blood transfusions may impact the HbA1c concentration in the patient sample. Estimated Average Glucose 114 mg/dL [facility] Comment:eAG = Estimated ave rage glucose which is %A1C expressed asaverage glucose, using the formula of the H0Z-VrwzbyzEeiqsiy Glucose study (ADAG), Diabetes Care, Vol.31,#8,Apr. 2007 Blood Venous blood specimen / Unknown 05/05/2025 12:20 PM EDT 05/05/2025 1:29 PM EDT Lilo Lujanryan [facility] LAB BLOOD ORDERABLES Final R esult Performing Organization Address [facility] Co de Phone Number [facility] [address] [place] [address] [phone] * Hepatic Function Panel (05/05/2025 12:20 PM EDT) Bilirubin, Total 0.3 0.0 - 1.0 mg/dL [facility] Bilirubin, Direct 0.1 0.0 - 0.5 mg/dL [facility] Aspartate Amino Transferase 30 5 - 31 U/L [facility] Alanine Aminotransferase 24 0 - 31 U/L [facility] Total Protein 7.0 6.5 - 8.0 g/dL [facility] Albumin Level 4.0 3.5 - 5.0 g/dL [facility] Alkaline Phosphatase 107 39 - 117 U/L [facility] Blood Venous blood specimen / Unknown 05/05/2025 12:20 PM EDT 05/05/2025 1:25 PM EDT us Lilo Trent DO LAB BLOOD ORDERABLES Final R esult [facility] [address] [place] [phone] * Lipid Panel, Standard (05/05/2025 12:20 PM EDT) Triglycerides 78 <150 mg/dL [facility] Comment:Desirable Triglyceri de: less than 150 mg/dLBorderline High Triglyceride 150-199 mg/dLHigh Triglyceride: 200-499 mg/dLVery High Triglyceride: greater than or equal to 5OO mg/dL Cholesterol 119 <200 mg/dL [facility] Comment:Desirable Cholestero l: less than 200 mg/dLBorderline High Cholesterol: 200-239 mg/dLHigh Cholesterol: greater than 239 mg/dL LDL Cholesterol Calculated 56 <100 mg/dL [facility] Comment:Desirable LDL: less than 100 mg/dLNear Optimal/Above Optimal LDL: 110- 129 mg/dLBorderline High LDL: 130-159 mg/dLHigh LDL: 160-189 mg/dLVery High LDL: greater than or equal to 190 mg/dL HDL Cholesterol 48 >40 mg/dL [facility] Comment:Desirable HDL: great er than 40 mg/dL Note: This HDL assay may give artificially low results in patients with liver disease. Blood Venous blood specimen / Unknown 05/05/2025 12:20 PM EDT 05/05/2025 1:25 PM EDT Lilo Trent DO LAB BLOOD ORDERABLES Final R esult Performing Organization Address [facility]/ZIP Co de Phone Number [facility] [address] [place] [phone] * Basic Metabolic Panel (05/05/2025 12:20 PM EDT) Sodium 143 135 - 145 mmol/L [facility] Potassium 3.5 3.3 - 5.1 mmol/L [facility] Chloride 107 96 - 108 mmol/L [facility] Carbon Dioxide 28 22 - 29 mmol/L [facility] Anion Gap 12 12 - 20 [facility] Urea Nitrogen (BUN) 12 9 - 16 mg/dL [facility] Creatinine, Serum 0.90 0.5 - 1.4 mg/dL [facility] Estimated Glomerular Filt Rate >60 [facility] Comment:Chronic Kidney Disea se: Estimated GFR < 60 mL/min/1.95a2Gcoqwa Kidney Disease: Estimated GFR < 15 mL/min/1.73m2 Glucose 101 60 - 115 mg/dL [facility] Calcium 8.9 8.4 - 10.2 mg/dL [facility] Blood Venous blood specimen / Unknown 05/05/2025 12:20 PM EDT 05/05/2025 1:25 PM EDT Lilo Trent DO LAB BLOOD ORDERABLES Final R esult Performing Organization Address [facility]/ZIP Co de Phone Number [facility] [address] [place] [phone] * XR Knee 4+ Views Left (05/05/2025 12:13 PM EDT) Anatomical Region Laterality Modality Lower Extremities, Knee Left Radiogra phic Imaging 05/05/2025 12:1 3 PM EDT Narrative 05/05/2025 1:28 PM EDT [address] [address] XRay Report Signed Patient: Zoë Johnson MR#: [id number] : 1965 Acct:[id number] Age/Sex: 60 / F ADM Date: 05/05/25 Loc: [place] Attending Dr: Lilo Trent DO Ordering Physician: Lilo Trent DO Date of Service: 05/05/25 Procedure(s): XR knee LT 4V Accession Number(s): [id number] cc: Lilo Trent DO EXAMINATION: XR KNEE 4 OR MORE VIEWS LEFT HISTORY: worsening knee pain and swelling s/p fall COMPARISON: Comparison is made with the prior examination dated 01/29/2022. FINDINGS: Five views of the left knee are submitted. Osseous mineralization is normal. There is no fracture or dislocation. The joint spaces are preserved. The soft tissues are unremarkable. There is no joint effusion. XR/XR knee LT 4V IMPRESSION: Unremarkable examination of the left knee. Electronically signed by: Anibal Brasher MD 05/05/2025 01:25 PM EDT Dictated By: Anibal Brasher MD Signed By: <Electronically signed by Anibal Brasher MD in OV> 05/05/25 1325 DD/ 1213 TD/TT: 05/05/25 1220 Door Glass Installer: Procedure Note Donotuseinterpreter, Image - 05/05/[address] [address] XRay Report Signed Patient: Chikis Johnson#: MM [id number] : 1965Acct:[id number] Age/Sex: 60 / FADM Date: 05/05/25 Loc: [place] Attending Dr: Lilo Trent DO Ordering Physician: Lilo Trent DO Date of Service: 05/05/25 Procedure(s): XR knee LT 4V Accession Number(s): [id number] cc: Lilo Trent DO EXAMINATION: XR KNEE 4 OR MORE VIEWS LEFT HISTORY: worsening knee pain and swelling s/p fall COMPARISON: Comparison is made with the prior examination dated 01/29/2022. FINDINGS: Five views of the left knee are submitted. Osseous mineralization is normal. There is no fracture or dislocation. The joint spaces are preserved. The soft tissues are unremarkable. There is no joint effusion. XR/XR knee LT 4V IMPRESSION: Unremarkable examination of the left knee. Electronically signed by: Anibal Brasher MD 05/05/2025 01:25 PM EDT Dictated By: Anibal Brasher MD Signed By: <Electronically signed by Anibal Brasher MD in OV> 05/05/25 1325 DD/ 1213 TD/TT: 05/05/25 1220 Door Glass Installer: Lilo Trent DO IMG XR PROCEDURES Final Resu lt * XR Thoracic Spine 2 Views (05/05/2025 12:11 PM EDT) Anatomical Region Laterality Modality Spine, T-spine Radiographic Freida ging 05/05/2025 12:1 1 PM EDT Narrative 05/05/2025 1:29 [place] [address] XRay Report Signed Patient: Zoë Johnson MR#: [id number] : 1965 Acct:[id number] Age/Sex: 60 / F ADM Date: 05/05/25 Loc: HO.HHCX Attending Dr: Lilo Trent DO Ordering Physician: Lilo Trent DO Date of Service: 05/05/25 Procedure(s): XR thoracic spine 2V Accession Number(s): [id number] cc: Lilo Trent DO EXAMINATION: XR THORACIC SPINE CLINICAL INFORMATION: PAIN COMPARISON: September 19, 2016 TECHNIQUE: AP and lateral views. FINDINGS: S-shaped curvature of the thoracic spine with a levoconvex curvature apex at T5. Multilevel marginal osteophyte formation and syndesmophyte formation with endplate sclerosis and decreased intervertebral disc height. No acute cortical disruption or malalignment. Metallic coils likely from a mesh procedure in the abdomen. XR/XR thoracic spine 2V IMPRESSION: Multilevel spondylosis and levoconvex scoliosis of the upper thoracic spine. Overall worsening since prior exam. Electronically signed by: Avi Solis MD 05/05/2025 01:27 PM EDT RP Dictated By: Avi Coombs MD Signed By: <Electronically signed by Avi Agosto MD in OV> 05/05/25 1327 DD/ 1211 TD/TT: 05/05/25 1220 Door Glass Installer: Procedure Note Donotuseinterpreter, Image - 05/05/[address] [address] XRay Report Signed Patient: Chikis Johnson#: MM [id number] : 1965Acct:[id number] Age/Sex: 60 / FADM Date: 05/05/25 Loc: HO.HHCX Attending Dr: Lilo Trent DO Ordering Physician: Lilo Trent DO Date of Service: 05/05/25 Procedure(s): XR thoracic spine 2V Accession Number(s): [id number] cc: Lilo Trent DO EXAMINATION: XR THORACIC SPINE CLINICAL INFORMATION: PAIN COMPARISON: September 19, 2016 TECHNIQUE: AP and lateral views. FINDINGS: S-shaped curvature of the thoracic spine with a levoconvex curvature apex at T5. Multilevel marginal osteophyte formation and syndesmophyte formation with endplate sclerosis and decreased intervertebral disc height. No acute cortical disruption or malalignment. Metallic coils likely from a mesh procedure in the abdomen. XR/XR thoracic spine 2V IMPRESSION: Multilevel spondylosis and levoconvex scoliosis of the upper thoracic spine. Overall worsening since prior exam. Electronically signed by: Avi Solis MD 05/05/2025 01:27 PM EDT RP Dictated By: Avi Coombs MD Signed By: <Electronically signed by Avi Agosto MDin OV> 05/05/25 1327 DD/ 1211 TD/TT: 05/05/25 1220 Door Glass Installer: Lilo Trent DO IMG XR PROCEDURES Final Resu lt * XR Lumbar Spine 2-3 Views (05/05/2025 12:09 PM EDT) Anatomical Region Laterality Modality Spine, L-spine Radiographic Freida ging 05/05/2025 12:0 9 PM EDT Narrative 05/05/2025 1:32 PM EDT [address] [address] XRay Report Signed Patient: Zoë Johnson MR#: [id number] : 1965 Acct:[id number] Age/Sex: 60 / F ADM Date: 05/05/25 Loc: HO.HHCX Attending Dr: Lilo Trent DO Ordering Physician: Lilo Trent DO Date of Service: 05/05/25 Procedure(s): XR lumbar spine 2-3V Accession Number(s): [id number] cc: Lilo Trent DO EXAMINATION: XR LUMBOSACRAL SPINE CLINICAL INFORMATION: worsening neck and back pain s/p fall COMPARISON: August 11, 2016. TECHNIQUE: AP and lateral views FINDINGS: Small marginal osteophyte formation and mild endplate sclerosis at the vertebral bodies of the lumbar spine. Larger marginal osteophyte formation and endplate sclerosis and the lower thoracic spine. No acute cortical disruption or malalignment. No lytic or blastic lesions. Metallic coils overlapping the lumbar spine and lower pelvis likely from mesh procedure. Vascular desiccation's, aorta. Vascular clips in the right upper quadrant abdomen and sutures in the right hemiabdomen. XR/XR lumbar spine 2-3V IMPRESSION: Multilevel thoracolumbar spondylosis without acute fracture or listhesis. Overall worsening in the lower thoracic spine. Electronically signed by: Avi Solis MD 05/05/2025 01:29 PM EDT RP Dictated By: Avi Coombs MD Signed By: <Electronically signed by Avi Agosto MD in OV> 05/05/25 1329 DD/ 1209 TD/TT: 05/05/25 1220 Door Glass Installer: Procedure Note Donotuseinterpreter, Image - 05/05/2025 [facility] [address] [place] [address] XRay Report Signed Patient: Chikis Johnson#: MM [id number] : 1965Acct:[id number] Age/Sex: 60 / FADM Date: 05/05/25 [facility]: Lilo Trent DO Ordering Physician: Lilo Trent DO Date of Service: 05/05/25 Procedure(s): XR lumbar spine 2-3V Accession Number(s): [id number] cc: Lilo Trent DO EXAMINATION: XR LUMBOSACRAL SPINE CLINICAL INFORMATION: worsening neck and back pain s/p fall COMPARISON: August 11, 2016. TECHNIQUE: AP and lateral views FINDINGS: Small marginal osteophyte formation and mild endplate sclerosis at the vertebral bodies of the lumbar spine. Larger marginal osteophyte formation and endplate sclerosis and the lower thoracic spine. No acute cortical disruption or malalignment. No lytic or blastic lesions. Metallic coils overlapping the lumbar spine and lower pelvis likely from mesh procedure. Vascular desiccation's, aorta. Vascular clips in the right upper quadrant abdomen and sutures in the right hemiabdomen. XR/XR lumbar spine 2-3V IMPRESSION: Multilevel thoracolumbar spondylosis without acute fracture or listhesis. Overall worsening in the lower thoracic spine. Electronically signed by: Avi Solis MD 05/05/2025 01:29 PM EDT RP Dictated By: Avi Coombs MD Signed By: <Electronically signed by Avi Agosto MDin OV> 08/15/25 1329 DD/ 1209 TD/TT: 05/05/25 1220 Door Glass Installer: Lilo Trent DO IMG XR PROCEDURES Final Resu lt * BI Mammogram Screening Tomosynthesis Bilateral (03/15/2024 12:50 PM EDT) Anatomical Region Laterality Modality Breast Bilateral Mammography 03/15/2024 12:5 0 PM EDT Narrative 04/13/2024 11:37 PM EDT [facility] [address] [place] [address] Mammography Report Signed Patient: Zoë Johnson MR#: [id number] : 1965 Acct:[id number] Age/Sex: 59 / F ADM Date: 03/15/24 Loc: MAMMO Attending Dr: Lilo Trent DO Ordering Physician: Lilo Trent DO Results: 1N egative Date of Service: 03/15/24 Follow Up: 1 Year From [facility] Mammogram Procedure(s): MM tomosynthesis screening BI Accession Number(s): [id number] cc: Lilo Trent DO EXAMINATION: MM SCREENING DIGITAL BREAST TOMOSYNTHESIS, BILATERAL CLINICAL INFORMATION: Screening. Asymptomatic. COMPARISON: Mammography: This study is compared with prior exams dating back to 2018. TECHNIQUE: Digital breast tomosynthesis is performed in both the craniocaudal and mediolateral oblique views along with computer-aided detection (CAD). Synthesized 2D images are generated from the tomosynthesis. FINDINGS: The breasts are almost entirely fatty (ACR BI-RADS breast composition Category a). There are no significant masses, abnormal calcifications, or other abnormalities. MM/MM tomosynthesis screening BI IMPRESSION: No mammographic evidence of malignancy. ASSESSMENT: BI-RADS BI-RADS 1 - Negative RECOMMENDATION: Routine annual mammography screening. 1 year F/U This examination should not preclude the clinical evaluation of a suspicious palpable abnormality. This patient's information was entered into a reminder system with a target due date for their next mammogram. Dictated By: Leandra Matos MD Signed By: <Electronically signed by Leandra Matos MD in OV> 04/13/242333 DD/ 1250 TD/TT: Door Glass Installer: Procedure Note Donotuseinterpreter, Image - 04/13/20[facility] [address] [place] [address] Mammography Report Signed Patient: Chikis Johnson#: MM [id number] : 1965Acct:[id number] Age/Sex: 59 / FADM Date: 03/15/24 Loc: HO.MAMMO Attending Dr: Lilo Trent DO Ordering Physician: Lilo Trentults: 1N egative Date of Service: 03/15/24Follow Up: 1 Year From Orig inal Mammogram Procedure(s): MM tomosynthesis screening BI Accession Number(s): [id number] cc: Lilo Trent DO EXAMINATION: MM SCREENING DIGITAL BREAST TOMOSYNTHESIS, BILATERAL CLINICAL INFORMATION: Screening. Asymptomatic. COMPARISON: Mammography: This study is compared with prior exams dating back to 2018. TECHNIQUE: Digital breast tomosynthesis is performed in both the craniocaudal and mediolateral oblique views along with computer-aided detection (CAD). Synthesized 2D images are generated from the tomosynthesis. FINDINGS: The breasts are almost entirely fatty (ACR BI-RADS breast composition Category a). There are no significant masses, abnormal calcifications, or other abnormalities. MM/MM tomosynthesis screening BI IMPRESSION: No mammographic evidence of malignancy. ASSESSMENT: BI-RADS BI-RADS 1 - Negative RECOMMENDATION: Routine annual mammography screening. 1 year F/U This examination should not preclude the clinical evaluation of a suspicious palpable abnormality. This patient's information was entered into a reminder system with a target due date for their next mammogram. Dictated By: Leandra Matos MD Signed By: <Electronically signed by Leandra Matos MD in OV> 04/13/242333 DD/ 1250 TD/TT: Door Glass Installer: Lilo Jurcsak DO IMG BI PROCEDURES Edited Res ult - Final * Hm Colonoscopy (07/15/2018) Colonoscopy Normal Normal 07/15/2018 Baljit Pop MD HEALTH MAINTENANCE Final Result from Last 3 Months or Most Recently Relevant to Health Maintenance Insurance [id number] MEDICAID STAND ADULT Care Teams Bulk Folder Relationship Specialty Start Date End Date Lilo Trent DO [address] [place] [phone] PCP - General Family Medicine 12/18/15
--- OUTSIDE RECORDS SUMMARY | 2025-07-24 17:47 | XMS_ITS | Encounter Summary ---
Author Organization [employer] Address [address] [facility] 7t [place] [address] Care Team Providers Care Tie Puller Name Role Phone Lilo Trent DO Primary Care Provider [phone] Reason for Visit * Reason Onset Date Comments Referral 12/05/2022 Encounter Details Date Type Department Care Team ([facility] st Contact Info) Description 12/05/2022 Telephone [facility] MEDICINE [address] [place], [place] [phone] Lilo Trent DO [address] [place], [place] [phone] Referral Social History Tobacco Use Types Packs/Day Years Used Date Smoking Tobacco: Never Assessed Comments Unknown Sex and Gender Information Value Date Recorded Sex Assigned at Female 07/21/2022 10:29 AM EDT Legal Sex Female 10:29 AM EDT Gender Identity Female 07/21/2022 10:29 AM EDT Sexual Orientation Straight 07/21/2022 10 :29 AM EDT documented as of this encounter Miscellaneous Notes * Telephone Encounter - Georgiana Atkinson RN - 12/08/2022 2:09 PM EDT TC returned to [phone] in regards to below message. Pt reports she would like to have an appt w/ her PCP as it has been a long time . Per chart review pt last saw PCP on 01/29/22 and had an appton 05/30 for F/U however pt no showed. RN scheduled pt for an appt w/ PCP on 12/23/22 as 30 mins per alert in nextgen. Pt agreed to appt. Pt to F/U PRN. * Telephone Encounter - Clinton Washington - 12/05/2022 3:33 PM EDT Tc from pt requesting a referral for [facility], for some lab work, and dentist. Please contact pt at [phone] documented in this encounter Plan of Treatment Upcoming Encounters Date Type Department Care Team (Late st Contact Info) Description 08/15/2025 11:00 AM EST Office Visit [facility] ADULT DENTAL [address] [place], [place] [phone] Melecio Farrell DDS [address] [place], [place] [phone] documented as of this encounter Visit Diagnoses Not on filedocumented in this encounter Care Teams Tie Puller Relationship Specialty Start Date End Date Lilo Trent DO [address] [place], [place] [phone] PCP - General Family Medicine 12/18/15 documented as of this encounter
--- OUTSIDE RECORDS SUMMARY | 2025-07-24 17:47 | XMS_ITS | Encounter Summary ---
Author Organization [employer] Address 75 [facility] 7t [place] [address] Care Team Providers Care Transport Aircrewman Name Role Phone Lilo Trent DO Primary Care Provider [phone] Reason for Visit * Reason Onset Date Comments PT-1 09/05/2024 Encounter Details Date Type Department Care Team ([facility] st Contact Info) Description 09/05/2024 Telephone [facility] MEDICINE [address] [place], [place] [phone] Lilo Trent DO [address] [place], [place] [phone] PT-1 Social History Tobacco Use Types Packs/Day Years Used Date Smoking Tobacco: Every Day Cigarettes Passive Smoke Exposure: Current Housing Stability Answer Date Recorded What is your housing situation today? I have teri juvencio 12/29/[address] you li [...] encounter Miscellaneous Notes * Telephone Encounter - Natalio Singh - 09/05/2024 3:22 PM EST Patient calling requesting PT1 Home Address verified: Y/N: Yes Provider name or facility name: [facility] Escort needed: Y/N: Yes Do you have a wheelchair: Y/N: No If yes- Manual or electric: Visits: (2 x month) Pt has the Apt for if its possible as soon as possible to get it done. documented in this encounter Plan of Treatment Upcoming Encounters Date Type Department Care Team (Late st Contact Info) Description 08/15/2025 11:00 AM EST Office Visit [facility] ADULT DENTAL [address] [place] [address] Melecio Farrell DDS [address] [place] [address] documented as of this encounter Visit Diagnoses Not on filedocumented in this encounter Care Teams Transport Aircrewman Relationship Specialty Start Date End Date Lilo Trent DO [address] [place] [address] PCP - General Family Medicine 12/18/15 documented as of this encounter
--- OUTSIDE RECORDS SUMMARY | 2025-07-24 17:47 | XMS_ITS | Encounter Summary ---
Author Organization [email or web address] Address [address] [facility] 7t [place] [address] Care Team Providers Care Veneer Patcher Name Role Phone Lilo Trent DO Primary Care Provider [phone] Reason for Visit * Reason Comments Med Refill Encounter Details Date Type Department Care Team (Late st Contact Info) Description 08/20/2023 Refill [facility] CHC MED & PEDS [address] [place], [place] [phone] Lilo Trent DO [address] [place], [place] [phone] Major depressive disorder, single episode, unspecified Social [...] Description 08/15/2025 11:00 AM EST Office Visit [facility] ADULT DENTAL [address] [place] [address] Melecio Farrell DDS [address] [place] [address] documented as of this encounter Visit Diagnoses Diagnosis Major depressive disorder, single episode, unspecified documented in this encounter Care Teams Veneer Patcher Relationship Specialty Start Date End Date Lilo Trent DO [address] [place] [address] PCP - General Family Medicine 12/18/15 documented as of this encounter
--- OUTSIDE RECORDS SUMMARY | 2025-07-24 17:47 | XMS_ITS | Encounter Summary ---
Author Organization [employer] Address [address] [facility] 7t [place] [address] Care Team Providers Care Value Engineer Name Role Phone Twan Lilo Primary Care Provider [phone] Reason for Visit * Reason Comments Med Refill Encounter Details Date Type Department Care Team ([facility] st Contact Info) Description 09/12/2024 Refill [facility] MEDICINE [address] [place], [place] [phone] Monique Ng MD [address] [place], [place] [phone] Major depression, recurrent, chronic (CMS/HCC) Social History Tobacco Use Types Packs/Day Years Used Date Smoking Tobacco: Every Day Cigarettes Passive Smoke Exposure: Current Housing Stability Answer Date Recorded What is your housing situation today? I have teri sing 12/29/[address] you li [...] 11:00 AM EST Office Visit [facility] ADULT DENTAL [address] [place], [place] [phone] Melecio Farrell DDS [address] [place] [address] documented as of this encounter Visit Diagnoses Diagnosis Major depression, recurrent, chronic (CMS/HCC) documented in this encounter Care Teams Value Engineer Relationship Specialty Start Date End Date Lilo Trent DO [address] [place] [address] PCP - General Family Medicine 12/18/15 documented as of this encounter
--- OUTSIDE RECORDS SUMMARY | 2025-07-24 17:47 | XMS_ITS | Encounter Summary ---
Author Organization [employer] Address [address] [facility] 7t [place] [address] Care Team Providers Care Dental Appliance Repairer Name Role Phone LeLilo davis Primary Care Provider + [phone] Encounter Details Date Type Department Care Team (Latest Contact Info) Description 07/24/2025 Travel Social History Tobacco Use Types Packs/Day Years [...] the past 12 months, has t he [employer], oil or water company threatened to shut [...] Description 08/15/2025 11:00 AM EST Office Visit [facility] ADULT DENTAL [address] [place] [address] Melecio Farrell DDS [address] [place] [address] documented as of this encounter Visit Diagnoses Not on filedocumented in this encounter Additional Health Concerns Assessment Noted Time PHQ-9 Depression Total Score: 16 025 12:21 PM EDT documented as of this encounter Care Teams Dental Appliance Repairer Relationship Specialty Start Date End Date Lilo Trent DO [address] [place] [address] PCP - General Family Medicine 12/18/15 documented as of this encounter
--- OUTSIDE RECORDS SUMMARY | 2025-07-24 17:47 | XMS_ITS | Encounter Summary ---
Author Organization [employer] Address [address] [facility] 7t [place] [address] Care Team Providers Care Wood Lathe Operator Name Role Phone Lilo Trent DO Primary Care Provider [phone] Reason for Visit * Reason Comments Med Refill Encounter Details Date Type Department Care Team ([facility] st Contact Info) Description 07/21/2023 Refill [facility] MEDICINE [address] [place], [place] [phone] Lilo Trent DO [address] [place], [place] [phone] Major depressive disorder, single episode, unspecified Social [...] Description 08/15/2025 11:00 AM EST Office Visit [facility] ADULT DENTAL [address] [place] [address] Melecio Farrell DDS [address] [place], [place] [phone] documented as of this encounter Visit Diagnoses Diagnosis Major depressive disorder, single episode, unspecified documented in this encounter Care Teams Wood Lathe Operator Relationship Specialty Start Date End Date Lilo Trent DO [address] [place] [address] PCP - General Family Medicine 12/18/15 documented as of this encounter
--- OUTSIDE RECORDS SUMMARY | 2025-07-24 17:48 | XMS_ITS | Encounter Summary ---
Author Organization [employer] Address [address] [facility] 7t [place] [address] Care Team Providers Care Central Communications Specialist Name Role Phone Lilo Trent DO Primary Care Provider Encounter Details Date Type Department Care Team (Late st Contact Info) Description 01/01/2023 Orders Only [facility] CHC MED & PEDS [address] [place] [address] Lilo Haywood LPN Social History Tobacco Use Types Packs/Day Years Used Date Smoking Tobacco: Every Day Cigarettes Comments Unknown Sex and Gender Information Value Date Recorded Sex Assigned at Female 07/21/2022 10:29 AM EDT Legal Sex Female 10:29 AM EDT Gender Identity Female 07/21/2022 10:29 AM EDT Sexual Orientation Straight 07/21/2022 10 :29 AM EDT COVID-19 Exposure Response Date Recorded In the last 10 days, have yo u been in contact with someone who was confirmed or suspected to have Coronavirus/COVID-19? No / Unsure 12/23/2022 9:36 AM EDT documented as of this encounter Plan of Treatment Upcoming Encounters Date Type Department Care Team (Late Contact Info) Description 08/15/2025 11:00 AM EST Office Visit [facility] ADULT DENTAL [address] [place] [address] Melecio Farrell DDS [address] [place], [place] [phone] documented as of this encounter Visit Diagnoses Not on filedocumented in this encounter Care Teams Central Communications Specialist Relationship Specialty Start Date End Date Lilo Trent DO [address] [place] [address] PCP - General Family Medicine 12/18/15 documented as of this encounter
--- OUTSIDE RECORDS SUMMARY | 2025-07-24 17:48 | XMS_ITS | Encounter Summary ---
Author Organization [employer] Address 75 [facility] 7t [place] [address] Care Team Providers Care Vp Of Digital Marketing Name Role Phone Lilo Trent DO Primary Care Provider [phone] Reason for Visit * Reason Comments Med Refill Encounter Details Date Type Department Care Team ([facility] st Contact Info) Description 04/15/2025 Refill [facility] MEDICINE [address] [place], [place] [phone] Lilo Trent DO [address] [place], [place] [phone] Social History Tobacco Use Types Packs/Day Years Used Date Smoking Tobacco: Every Day Cigarettes Passive Smoke Exposure: Current Alcohol Use Standard Drinks/Week Comments Defer 0 (1 standard drink = 0.6 oz pur e alcohol) Housing Stability Answer Date Recorded What is [...] Description 08/15/2025 11:00 AM EST Office Visit [facility] ADULT DENTAL [address] [place], [place] [phone] Melecio Farrell DDS [address] [place], [place] [phone] documented as of this encounter Visit Diagnoses Not on filedocumented in this encounter Care Teams Vp Of Digital Marketing Relationship Specialty Start Date End Date Lilo Trent DO [address] [place], [place] [phone] PCP - General Family Medicine 12/18/15 documented as of this encounter
--- OUTSIDE RECORDS SUMMARY | 2025-07-24 17:48 | XMS_ITS | Encounter Summary ---
Author Organization [employer] Address [address] [facility] 7t [place] [address] Care Team Providers Care Non Destructive Testing Specialist Name Role Phone Lilo Trent DO Primary Care Provider [phone] Reason for Visit * Reason Comments Med Refill Encounter Details Date Type Department Care Team ([facility] st Contact Info) Description 11/12/2023 Refill [facility] MEDICINE [address] [place], [place] [phone] Lilo Trent DO [address] [place], [place] [phone] Other hyperlipidemia Social History Tobacco Use Types Packs/Day Years [...] Description 08/15/2025 11:00 AM EST Office Visit [facility] ADULT DENTAL [address] [place], [place] [phone] Melecio Farrell DDS [address] [place] [address] documented as of this encounter Visit Diagnoses Diagnosis Other hyperlipidemia documented in this encounter Care Teams Non Destructive Testing Specialist Relationship Specialty Start Date End Date Lilo Trent DO [address] [place] [address] PCP - General Family Medicine 12/18/15 documented as of this encounter
--- OUTSIDE RECORDS SUMMARY | 2025-07-24 17:48 | XMS_ITS | Encounter Summary ---
Author Organization [employer] Address [address] [facility] 7t [place] [address] Care Team Providers Care Molded Frames Assembler Name Role Phone Lilo Trent DO Primary Care Provider [phone] Reason for Visit * Reason Comments Med Refill Encounter Details Date Type Department Care Team ([facility] st Contact Info) Description 12/28/2024 Refill [facility] MEDICINE [address] [place], [place] [phone] Lilo Trent DO [address] [place], [place] [phone] Social History Tobacco Use Types Packs/Day Years [...] Description 08/15/2025 11:00 AM EST Office Visit [facility] ADULT DENTAL [address] [place], [place] [phone] Melecio Farrell DDS [address] [place], [place] [phone] documented as of this encounter Visit Diagnoses Not on filedocumented in this encounter Care Teams Molded Frames Assembler Relationship Specialty Start Date End Date Lilo Trent DO [address] [place], [place] [phone] PCP - General Family Medicine 12/18/15 documented as of this encounter
--- OUTSIDE RECORDS SUMMARY | 2025-07-24 17:48 | XMS_ITS | Encounter Summary ---
Author Organization [employer] Address [address] [facility] 7t [place] [address] Care Team Providers Care Business Affairs Manager Name Role Phone Lilo Trent DO Primary Care Provider [phone] Reason for Visit * Reason Comments Med Refill Encounter Details Date Type Department Care Team (Late st Contact Info) Description 01/27/2023 Refill [facility] MEDICINE [address] [place] [address] Lilo Trent DO [address] [place] [address] Pain in thoracic spine Social History Tobacco Use Types Packs/Day Years [...] Description 08/15/2025 11:00 AM EST Office Visit [facility] ADULT DENTAL [address] [place] [address] Melecio Farrell DDS [address] [place] [address] documented as of this encounter Visit Diagnoses Diagnosis Pain in thoracic spine documented in this encounter Care Teams Business Affairs Manager Relationship Specialty Start Date End Date Lilo Trent DO [address] [place] [address] PCP - General Family Medicine 12/18/15 documented as of this encounter
--- OUTSIDE RECORDS SUMMARY | 2025-07-24 17:48 | XMS_ITS | Encounter Summary ---
Author Organization [employer] Address [address] [facility] 7t [place] [address] Care Team Providers Care Can Reconditioner Name Role Phone Lilo Trent DO Primary Care Provider Encounter Details Date Type Department Care Team (Late st Contact Info) Description 01/23/2023 Orders Only [facility] CHC MED & PEDS [address] [place] [address] Lilo Haywood LPN Social History Tobacco Use [...] [facility] ADULT DENTAL [address] [place] [address] Melecio Farrell DDS [address] [place] [address] documented as of this encounter Visit Diagnoses Not on filedocumented in this encounter Care Teams Can Reconditioner Relationship Specialty Start Date End Date Lilo Trent DO [address] [place] [address] PCP - General Family Medicine 12/18/15 documented as of this encounter
--- OUTSIDE RECORDS SUMMARY | 2025-07-24 17:48 | XMS_ITS | Encounter Summary ---
Author Organization [employer] Address [address] [place] [address] 7t [place] [address] Care Team Providers Care Timber Estimator Name Role Phone Lilo Trent DO Primary Care Provider Encounter Details Date Type Department Care Team (Late st Contact Info) Description 09/18/2022 Orders Only [facility] MEDICINE [address] [place] [address] Helen Almaguer RN Social History Tobacco Use Types Packs/Day Years [...] 11:00 AM EST Office Visit [facility] ADULT DENTAL [address] [place] [address] Melecio Farrell DDS [address] [place] [address] documented as of this encounter Visit Diagnoses Not on filedocumented in this encounter Care Teams Timber Estimator Relationship Specialty Start Date End Date Lilo Trent DO [address] [place] [address] PCP - General Family Medicine 12/18/15 documented as of this encounter
[2025-07-24 22:55] VITALS: BP 142/67; PULSE 68; RESP 16; TEMP 36.6; O2SAT 97
[2025-07-25 03:45] VITALS: BP 142/67; PULSE 68; RESP 16; TEMP 36.6; O2SAT 97
== END 2025-07-24 23:40 | disposition home or self-care (01) ==
PROVIDERS: Emergency Provider Emergency Medicine; PCP Family Medicine
DX: S39.012A Strain of muscle, fascia and tendon of lower back, initial encounter (principal); M47.896 Other spondylosis, lumbar region; K59.00 Constipation, unspecified; E66.01 Morbid (severe) obesity due to excess calories; I10 Essential (primary) hypertension; Z68.38 Body mass index [BMI] 38.0-38.9, adult; X50.0XXA Overexertion from strenuous movement or load, initial encounter; X50.9XXA Other and unspecified overexertion or strenuous movements or postures, initial encounter; Y93.89 Activity, other specified; Y92.89 Other specified places as the place of occurrence of the external cause; Y99.8 Other external cause status; Z87.442 Personal history of urinary calculi; Z79.899 Other long term (current) drug therapy
CPT/HCPCS: 74176; 96372; 99283; 99284; J1885

== ENCOUNTER → 2025-07-24 20:30 | Outpatient (BNV) | payer MEDICAID, SELFPAY | PROVIDERS: Emergency Provider Emergency Medicine; PCP Family Medicine; Visit Provider Radiology Diagnostic Radiology | DX: M54.6 Pain in thoracic spine (principal); M54.50 Low back pain, unspecified | CPT/HCPCS: 74176 ==